=== PATIENT | female | born 1960 | race African-American/Black ===

== ENCOUNTER 2017-11-16 23:24 | Inpatient (IN) | payer MEDICAID ==
[~2017-11-16] VITALS: Ht 167.6 cm; Wt 98.1 kg
[2017-11-17 00:17] LABS: Basophils # (auto) 0 uL; Eosinophils # (auto) 0.2 uL; Eosinophils % (auto) 3.9 % (0.0-7.0); Hemoglobin 10.4 g/dL (12.2-16.2); Lymphocytes # (auto) 2.1 uL; Lymphocytes % (auto) 48.1 % (10.0-50.0); Mean Corpuscular Hemoglobin 29.4 pg (28.0-32.0); Mean Corpuscular Hgb Conc. 33.8 g/dL (32.0-36.0); Monocytes # (auto) 0.5 uL; Monocytes % (auto) 11.9 % (0.0-12.0); Neutrophils # (auto) 1.5 uL; Neutrophils % (auto) 35.1 % (37.0-80.0); Nucleated Red Blood Cells % 0.2 %; Platelet Count (auto) 301 10^3/uL (140-450); Red Blood Cells 3.56 10^6/uL (4.0-5.20); Red Cell Distribution Width 15.4 % (11.8-14.3); White Blood Cell 4.4 10^3/uL (4.4-10.8)
[2017-11-17 00:36] LABS: Albumin 3.1 g/dL (3.4-5.0); Anion Gap 9 (5-15); Aspartate Aminotransferase 8 U/L (15-37); Blood Urea Nitrogen 13 mg/dL (7-18); Calcium 8.6 mg/dL (8.5-10.1); Carbon Dioxide 26 mmol/L (21-32); Chloride 93 mmol/L (98-107); GFR African American 120 mL/min; GFR Non-African American 99 mL/min; Glucose 305 mg/dL (74-106); Magnesium 1.3 mg/dL (1.6-2.6); Potassium 3.5 mmol/L (3.5-5.1); Sodium 128 mmol/L (136-145)
[2017-11-17 00:45] LABS: Alanine Aminotransferase 16 U/L (13-56); Alkaline Phosphatase 49 U/L (45-117); Bilirubin, Total 0.3 mg/dL (0.2-1.0); Total Protein 7.2 g/dL (6.4-8.2)
[2017-11-17] MEDS ORDERED: SODIUM CHLORIDE 0.9% 1,000 ML IV ONE (01:45)
[2017-11-17 02:41] LABS: Urine Bacteria FEW /hpf (None Seen); Urine Blood Negative /uL (Negative); Urine Specific Gravity 1.009 (1.001-1.035); Urine WBC 1 /hpf (0 - 5)
[2017-11-17] MEDS ORDERED: MORPHINE SULFATE 4 MG/ML SYR/VIAL IV ONE (03:00)
[2017-11-17] MEDS ORDERED: LABETALOL HCL 5 MG/ML ML 20ML VIAL IV ONE (03:00)
[2017-11-17] MEDS ORDERED: ONDANSETRON HCL 4 MG/2 ML VIAL IV ONE (03:00)
[2017-11-17] MEDS ORDERED: FUROSEMIDE 20 MG/2 ML VIAL IV ONE (03:00)
[2017-11-17] MEDS ORDERED: InsuLIN REG 1unit/0.01ml Soln (100units/ml) SC ONE ×2 (03:00→12:30)
[2017-11-17] MEDS ORDERED: InsuLIN REG 1unit/0.01ml Soln (100units/ml) IV ONE (05:00)
[2017-11-17] MEDS ORDERED: MORPHINE SULFATE 4 MG/ML SYR/VIAL IV PRN (07:00)
[2017-11-17] MEDS ORDERED: TEMAZEPAM 15 MG CAP PO PRN (07:00)
[2017-11-17] MEDS ORDERED: DEXTROSE (50%) 50ML SYRG IV PRN ×2 (07:00→12:30)
[2017-11-17] MEDS ORDERED: HYDROcodone-ACET 5/325MG TAB PO PRN (07:00)
[2017-11-17] MEDS ORDERED: NITROGLYCERIN 0.4 MG SL TAB SL PRN (07:00)
[2017-11-17] MEDS ORDERED: ONDANSETRON HCL 4 MG/2 ML VIAL IV PRN (07:00)
[2017-11-17] MEDS ORDERED: ACETAMINOPHEN 325 MG TAB PO PRN (07:00)
[2017-11-17] MEDS ORDERED: cloNIDine HCL 0.1 MG TAB PO PRN (07:00)
[2017-11-17] MEDS: SODIUM CHLORIDE 0.9% 1,000 ML IV SCH ×2 (07:29→20:20)
[2017-11-17] MEDS: MAGNESIUM SULFATE 1GM/100ML 100 ML IV SCH ×2 (07:40→08:48)
[2017-11-17] MEDS: ASPirin 81 mg TAB PO SCH (10:24)
[2017-11-17] MEDS: ENOXAPARIN SOD 40 MG/0.4 ML SYRINGE SC SCH (10:24)
[2017-11-17] MEDS: HCTZ 25 MG TAB PO SCH (10:24)
[2017-11-17] MEDS: LOSARTAN POTASSIUM 25 MG TAB PO SCH (10:24)
[2017-11-17] MEDS: FAMOTIDINE 20 MG TAB PO SCH ×2 (10:24→22:06)
[2017-11-17] MEDS ORDERED: HCTZ25T PO (11:05)
[2017-11-17] MEDS ORDERED: BENZ2TAB2 PO (11:05)
[2017-11-17] MEDS ORDERED: GLY5T PO (11:05)
[2017-11-17] MEDS ORDERED: ATO40T PO (11:05)
[2017-11-17] MEDS ORDERED: METF-372 PO (11:05)
[2017-11-17] MEDS ORDERED: HAL5T PO (11:05)
[2017-11-17] MEDS ORDERED: LOSA25TA8 PO (11:05)
[2017-11-17] MEDS ORDERED: LURA40TA PO (11:05)
[2017-11-17] MEDS ORDERED: DIVA500T53 PO (11:05)
[2017-11-17] MEDS ORDERED: InsuLIN REG 1unit/0.01ml Soln (100units/ml) SC SCH (12:00)
[2017-11-17] MEDS ORDERED: ACCU-CHEK COMFORT CURVE STRIP VI SCH (12:00)
[2017-11-17 16:57] VITALS: BP 148/83
[2017-11-17] MEDS: ACCU-CHEK COMFORT CURVE STRIP VI SCH ×2 (17:52→20:00)
[2017-11-17] MEDS: InsuLIN REG 1unit/0.01ml Soln (100units/ml) SC SCH ×2 (17:53→20:00)
[2017-11-17] MEDS: INSULIN 70/30 1unit/0.01ml Susp (100units/ml) SC SCH (18:02)
[2017-11-17 20:00] VITALS: BP 143/55
[2017-11-17 21:40] VITALS: BP 143/70
[2017-11-17] MEDS ORDERED: ATORVASTATIN 20 MG TAB PO SCH (22:00)
[2017-11-18] MEDS: InsuLIN REG 1unit/0.01ml Soln (100units/ml) SC SCH ×3 (04:00→08:21)
[2017-11-18] MEDS: ACCU-CHEK COMFORT CURVE STRIP VI SCH ×3 (04:00→08:21)
[2017-11-18 04:35] VITALS: BP 158/89
[2017-11-18 07:03] LABS: Basophils # (auto) 0 uL; Basophils % (auto) 0.6 % (0.0-2.0); Eosinophils # (auto) 0.1 uL; Eosinophils % (auto) 2.7 % (0.0-7.0); Hematocrit 33.7 % (36.0-46.0); Hemoglobin 11.1 g/dL (12.2-16.2); Lymphocytes # (auto) 2.1 uL; Lymphocytes % (auto) 41.1 % (10.0-50.0); Mean Corpuscular Hemoglobin 28.7 pg (28.0-32.0); Mean Corpuscular Volume 87.1 fL (80.0-100.0); Monocytes # (auto) 0.9 uL; Monocytes % (auto) 17.1 % (0.0-12.0); Neutrophils # (auto) 1.9 uL; Neutrophils % (auto) 38.5 % (37.0-80.0); Nucleated Red Blood Cells % 0.1 %; Platelet Count (auto) 316 10^3/uL (140-450); Red Blood Cells 3.87 10^6/uL (4.0-5.20); Red Cell Distribution Width 15.5 % (11.8-14.3)
[2017-11-18 07:11] LABS: Potassium 4.2 mmol/L (3.5-5.1)
[2017-11-18 07:15] LABS: Albumin 3.2 g/dL (3.4-5.0); BUN/Creatinine Ratio 19.4; Calcium 9.3 mg/dL (8.5-10.1)
[2017-11-18 07:17] LABS: Bilirubin, Total 0.3 mg/dL (0.2-1.0); Total Protein 7.6 g/dL (6.4-8.2)
[2017-11-18] MEDS: INSULIN 70/30 1unit/0.01ml Susp (100units/ml) SC SCH (08:20)
[2017-11-18 09:00] VITALS: BP 129/70
[2017-11-18] MEDS: FAMOTIDINE 20 MG TAB PO SCH (09:35)
[2017-11-18] MEDS: ASPirin 81 mg TAB PO SCH (09:35)
[2017-11-18] MEDS: HCTZ 25 MG TAB PO SCH (09:36)
[2017-11-18] MEDS: ENOXAPARIN SOD 40 MG/0.4 ML SYRINGE SC SCH (09:36)
[2017-11-18] MEDS: LOSARTAN POTASSIUM 25 MG TAB PO SCH (09:36)
[2017-11-18] MEDS: SODIUM CHLORIDE 0.9% 1,000 ML IV SCH (09:39)
[2017-11-18 10:15] VITALS: BP 129/70
== END 2017-11-18 12:00 | disposition home or self-care (01) | DRG 638 ==
LOC: ER 23:24 → TELE 23:25 → TELE-CENTR 11-17 15:00
PROVIDERS: ADMIT Nurse Practitioner; ATTEND Nurse Practitioner
DX: E11.65 Type 2 diabetes mellitus with hyperglycemia (principal); E87.1 Hypo-osmolality and hyponatremia; I11.0 Hypertensive heart disease with heart failure; I50.9 Heart failure, unspecified; E66.01 Morbid (severe) obesity due to excess calories; J98.11 Atelectasis; D64.9 Anemia, unspecified; E78.5 Hyperlipidemia, unspecified; G45.4 Transient global amnesia; Z79.4 Long term (current) use of insulin; Z82.49 Family history of ischemic heart disease and other diseases of the circulatory system; Z83.3 Family history of diabetes mellitus; Z86.73 Personal history of transient ischemic attack (TIA), and cerebral infarction without residual deficits; Z88.0 Allergy status to penicillin
CPT/HCPCS: 36415; 70450; 71045; 80053; 81001; 82962; 83036; 83735; 83880; 84484; 85025; 93005; 93306; 96361; 96365; 96372; 96375; J1815; J2405

== ENCOUNTER 2020-10-31 01:40 | Inpatient (IN) | payer MEDICAID ==
[2020-10-31] VITALS (35 sets, daily range): BP systolic 77–157; BP diastolic 39–83
[~2020-10-31] VITALS: Ht 170.2 cm; Wt 84.7 kg
[~2020-10-31 01:40] MED LIST: ATO40T PO; BENZ2TAB2 PO; DIVA500T2 PO; GLYB5TAB9 PO; HAL5T PO; HYDR25TA5 PO; LOSA25TA2 PO; LURA40TA PO; METF-372 PO
[2020-10-31] MEDS ORDERED: ETOMIDATE (2MG/ML) 20ML VIAL IV ONE ×2 (01:42→02:30)
[2020-10-31] MEDS ORDERED: MIDAZOLAM DRIP 50 mg/50mL 50 ML IV ONE (01:42)
[2020-10-31] MEDS ORDERED: NALOXONE HCL 1MG/ML 2ML SYRINGE ONE (01:46)
[2020-10-31] MEDS: NOREPINEPHRINE 8 MG/250ML KIT 250 ML IV SCH ×3 (01:55→20:13)
[2020-10-31] MEDS ORDERED: FUROSEMIDE 40 MG/4 ML VIAL IV ONE (02:30)
[2020-10-31] MEDS ORDERED: VANCOMYCIN 1GM/250ML 250 ML IV ONE (03:15)
[2020-10-31] MEDS ORDERED: levoFLOXacin 750MG 150 ML IV ONE (03:15)
[2020-10-31 04:24] LABS: Hemoglobin 7.8 g/dL (12.2-16.2); Red Blood Cells 2.68 10^6/uL (4.0-5.20); Red Cell Distribution Width 15.7 % (11.8-14.3)
[2020-10-31 04:26] LABS: Basophils # (auto) 0 10 ^3/uL (0-0.2); Basophils % (auto) 0.2 % (0.0-2.0); Eosinophils # (auto) 0.1 10 ^3/uL (0-0.8); Eosinophils % (auto) 0.7 % (0.0-7.0); Hematocrit 23.4 % (36.0-46.0); Lymphocytes % (auto) 25.8 % (10.0-50.0); Mean Corpuscular Hemoglobin 29.2 pg (28.0-32.0); Mean Corpuscular Hgb Conc. 33.5 g/dL (32.0-36.0); Mean Corpuscular Volume 87.2 fL (80.0-100.0); Monocytes # (auto) 1.8 10 ^3/uL (0-1.3); Monocytes % (auto) 11.4 % (0.0-12.0); Neutrophils # (auto) 9.6 10 ^3/uL (1.6-8.6); Neutrophils % (auto) 61.9 % (37.0-80.0); Nucleated Red Blood Cells % 0.1 %; Platelet Count (auto) 561 10^3/uL (140-450); White Blood Cell 15.4 10^3/uL (4.4-10.8)
[2020-10-31 04:50] LABS: Albumin 1.8 g/dL (3.4-5.0); Calcium 8.2 mg/dL (8.5-10.1); Magnesium 2.1 mg/dL (1.6-2.6)
[2020-10-31 04:55] LABS: Potassium 2.8 mmol/L (3.5-5.1)
[2020-10-31 04:57] LABS: BUN/Creatinine Ratio 23.3; Bilirubin, Total 0.2 mg/dL (0.2-1.0); Total Protein 7.9 g/dL (6.4-8.2)
[2020-10-31 05:02] LABS: INR 1.13 (0.9-1.15); Partial Thromboplastin Time 31.9 sec (23.0-31.2)
[2020-10-31] MEDS ORDERED: POTASSIUM CHL 20MEQ/100ML 100 ML IV STA (06:19)
[2020-10-31] MEDS ORDERED: LACTATED RINGER'S 500 ML IV ONE (06:30)
[2020-10-31] MEDS ORDERED: PROPOFOL 100 ML IV ONE (07:12)
[2020-10-31] MEDS: MIDAZOLAM DRIP 50 mg/50mL 50 ML IV SCH ×3 (07:30→23:15)
[2020-10-31] MEDS: PROPOFOL 100 ML IV SCH ×2 (07:30→22:47)
[2020-10-31 09:03] LABS: Urine Bacteria NONE SEEN /hpf (None Seen); Urine Blood 2+ /uL (Negative); Urine Hyaline Cast FEW /lpf (0 - 2); Urine Specific Gravity 1.016 (1.001-1.035); Urine WBC 7 /hpf (0 - 5)
[2020-10-31] MEDS ORDERED: ONDANSETRON HCL 4 MG/2 ML VIAL IV PRN (10:00)
[2020-10-31] MEDS ORDERED: NITROGLYCERIN 0.4 MG SL TAB SL PRN (10:00)
[2020-10-31] MEDS ORDERED: MORPHINE SULF INJ 2 MG/ML SYRINGE 1ML IV PRN (10:00)
[2020-10-31] MEDS ORDERED: ACETAMINOPHEN 650 mg PER 20.3 mL UD PO PRN (10:00)
[2020-10-31] MEDS ORDERED: D5W/ SOD CHL 0.9%/KCL 20MEQ 1,000 ML IV ONE (10:00)
[2020-10-31] MEDS ORDERED: DEXTROSE (50%) 50ML SYRG IV PRN (10:00)
[2020-10-31 10:25] LABS: Basophils # (auto) 0 10 ^3/uL (0-0.2); Eosinophils # (auto) 0 10 ^3/uL (0-0.8); Hematocrit 22.6 % (36.0-46.0); Hemoglobin 7.6 g/dL (12.2-16.2); Lymphocytes # (auto) 1.4 10 ^3/uL (0.4-5.4); Lymphocytes % (auto) 9.3 % (10.0-50.0); Monocytes # (auto) 1.2 10 ^3/uL (0-1.3); Red Cell Distribution Width 15.9 % (11.8-14.3)
[2020-10-31 10:27] LABS: Basophils % (auto) 0.1 % (0.0-2.0); Mean Corpuscular Hemoglobin 28.9 pg (28.0-32.0); Mean Corpuscular Hgb Conc. 33.5 g/dL (32.0-36.0); Mean Corpuscular Volume 86.4 fL (80.0-100.0); Monocytes % (auto) 8.2 % (0.0-12.0); Neutrophils # (auto) 11.9 10 ^3/uL (1.6-8.6); Neutrophils % (auto) 82.4 % (37.0-80.0); Platelet Count (auto) 551 10^3/uL (140-450); Red Blood Cells 2.61 10^6/uL (4.0-5.20); White Blood Cell 14.5 10^3/uL (4.4-10.8)
[2020-10-31 10:43] LABS: Albumin 1.8 g/dL (3.4-5.0); Calcium 7.9 mg/dL (8.5-10.1); Potassium 3.6 mmol/L (3.5-5.1)
[2020-10-31 10:51] LABS: BUN/Creatinine Ratio 33.3; Bilirubin, Total 0.2 mg/dL (0.2-1.0); Total Protein 7.6 g/dL (6.4-8.2)
[2020-10-31] MEDS: PANTOPRAZOLE 40 MG/10 ML VIAL INJ IV SCH (10:55)
[2020-10-31] MEDS: ACCU-CHEK COMFORT CURVE STRIP VI SCH ×3 (12:27→23:39)
[2020-10-31] MEDS: InsuLIN REG 1unit/0.01ml Soln (100units/ml) SC SCH ×3 (12:27→23:42)
[2020-10-31] MEDS: D5W/ SOD CHL 0.9%/KCL 20MEQ 1,000 ML IV SCH ×2 (13:55→20:14)
[2020-10-31] MEDS: SODIUM CHLOR 0.9% PF (SALINE LOCK) 10ML VIAL/SYR IV SCH ×2 (13:56→21:50)
[2020-10-31] MEDS ORDERED: FURO1TAB31 PO (20:17)
[2020-10-31] MEDS ORDERED: ASPI-543 PO (20:25)
[2020-10-31] MEDS ORDERED: CYA100I IM (20:25)
[2020-10-31] MEDS ORDERED: OLAN20TA PO (20:25)
[2020-10-31] MEDS ORDERED: ZINC220C8 PO (20:25)
[2020-10-31] MEDS ORDERED: INSLISPI SC (20:25)
[2020-10-31] MEDS ORDERED: INSDRIP SC (20:25)
[2020-10-31] MEDS ORDERED: METO-289 PO (20:25)
[2020-10-31] MEDS ORDERED: IBUP800T27 PO (20:25)
[2020-10-31] MEDS ORDERED: TICA90TA PO (20:25)
[2020-10-31] MEDS ORDERED: MAGN400T40 PO (20:25)
[2020-10-31] MEDS ORDERED: INSU1INJ19 SC (20:25)
[2020-10-31] MEDS ORDERED: GABA300C10 PO (20:25)
[2020-10-31] MEDS ORDERED: HAL1T PO (20:26)
[2020-10-31] MEDS ORDERED: CYAN100031 PO (20:27)
[2020-10-31] MEDS ORDERED: ENOXAPARIN SOD 100 MG/1 ML SYRINGE SC SCH (22:00)
[2020-11-01] VITALS (107 sets, daily range): BP systolic 77–143; BP diastolic 35–70
[2020-11-01] MEDS: MIDAZOLAM DRIP 50 mg/50mL 50 ML IV SCH ×3 (03:44→21:13)
[2020-11-01 04:10] LABS: Basophils # (auto) 0 10 ^3/uL (0-0.2); Basophils % (auto) 0.3 % (0.0-2.0); Eosinophils # (auto) 0 10 ^3/uL (0-0.8); Eosinophils % (auto) 0.4 % (0.0-7.0); Lymphocytes # (auto) 1.2 10 ^3/uL (0.4-5.4); Red Blood Cells 2.54 10^6/uL (4.0-5.20)
[2020-11-01 04:12] LABS: Hematocrit 21.8 % (36.0-46.0); Hemoglobin 7.4 g/dL (12.2-16.2); Lymphocytes % (auto) 13.6 % (10.0-50.0); Mean Corpuscular Hemoglobin 29.3 pg (28.0-32.0); Mean Corpuscular Volume 86.1 fL (80.0-100.0); Monocytes # (auto) 0.9 10 ^3/uL (0-1.3); Monocytes % (auto) 10.2 % (0.0-12.0); Neutrophils # (auto) 6.4 10 ^3/uL (1.6-8.6); Neutrophils % (auto) 75.5 % (37.0-80.0); Nucleated Red Blood Cells % 0.1 %; Platelet Count (auto) 490 10^3/uL (140-450); White Blood Cell 8.5 10^3/uL (4.4-10.8)
[2020-11-01 04:20] LABS: INR 1.11 (0.9-1.15); Partial Thromboplastin Time 30.3 sec (23.0-31.2)
[2020-11-01 04:25] LABS: Albumin 1.7 g/dL (3.4-5.0); Calcium 7.8 mg/dL (8.5-10.1); Potassium 3.2 mmol/L (3.5-5.1)
[2020-11-01 04:33] LABS: Bilirubin, Total 0.2 mg/dL (0.2-1.0); Total Protein 7.4 g/dL (6.4-8.2)
[2020-11-01] MEDS: D5W/ SOD CHL 0.9%/KCL 20MEQ 1,000 ML IV SCH (05:12)
[2020-11-01] MEDS: SODIUM CHLOR 0.9% PF (SALINE LOCK) 10ML VIAL/SYR IV SCH ×3 (06:03→22:32)
[2020-11-01] MEDS: ACCU-CHEK COMFORT CURVE STRIP VI SCH ×4 (06:04→23:37)
[2020-11-01] MEDS: InsuLIN REG 1unit/0.01ml Soln (100units/ml) SC SCH ×5 (06:04→23:38)
[2020-11-01] MEDS: PANTOPRAZOLE 40 MG/10 ML VIAL INJ IV SCH (09:44)
[2020-11-01] MEDS: levoFLOXacin 500MG 100 ML IV SCH (09:44)
[2020-11-01 10:06] LABS: Basophils # (auto) 0 10 ^3/uL (0-0.2); Eosinophils # (auto) 0 10 ^3/uL (0-0.8); Hemoglobin 7.3 g/dL (12.2-16.2); Lymphocytes # (auto) 1.1 10 ^3/uL (0.4-5.4); Mean Corpuscular Volume 87.3 fL (80.0-100.0); Monocytes # (auto) 0.8 10 ^3/uL (0-1.3); Monocytes % (auto) 10.2 % (0.0-12.0); Neutrophils # (auto) 5.8 10 ^3/uL (1.6-8.6); Neutrophils % (auto) 75.1 % (37.0-80.0)
[2020-11-01 10:07] LABS: Basophils % (auto) 0.3 % (0.0-2.0); Eosinophils % (auto) 0.2 % (0.0-7.0); Hematocrit 21.3 % (36.0-46.0); Lymphocytes % (auto) 14.2 % (10.0-50.0); Mean Corpuscular Hemoglobin 29.7 pg (28.0-32.0); Mean Corpuscular Hgb Conc. 34.1 g/dL (32.0-36.0); Nucleated Red Blood Cells % 0.1 %; Platelet Count (auto) 470 10^3/uL (140-450); Red Blood Cells 2.44 10^6/uL (4.0-5.20); Red Cell Distribution Width 15.6 % (11.8-14.3); White Blood Cell 7.7 10^3/uL (4.4-10.8)
[2020-11-01 10:26] LABS: Lactic Acid w/Reflex 2.1 mmol/L (0.4-2.0)
[2020-11-01 10:30] LABS: Albumin 1.7 g/dL (3.4-5.0); Calcium 8.1 mg/dL (8.5-10.1); Potassium 3.4 mmol/L (3.5-5.1)
[2020-11-01 10:34] LABS: BUN/Creatinine Ratio 32.3; Bilirubin, Total 0.2 mg/dL (0.2-1.0); Total Protein 7.1 g/dL (6.4-8.2)
[2020-11-01] MEDS ORDERED: SODIUM CHLORIDE 0.9% 1,000 ML IV ONE (17:45)
[2020-11-01] MEDS: NOREPINEPHRINE 8 MG/250ML KIT 250 ML IV SCH (20:00)
[2020-11-02] VITALS (104 sets, daily range): BP systolic 103–152; BP diastolic 44–71
[2020-11-02] MEDS: PROPOFOL 100 ML IV SCH (00:18)
[2020-11-02] MEDS: MIDAZOLAM DRIP 50 mg/50mL 50 ML IV SCH ×3 (02:45→18:17)
[2020-11-02] MEDS: D5W/ SOD CHL 0.9%/KCL 20MEQ 1,000 ML IV SCH ×3 (02:45→16:00)
[2020-11-02 05:26] LABS: Basophils # (auto) 0 10 ^3/uL (0-0.2); Basophils % (auto) 0.2 % (0.0-2.0); Eosinophils # (auto) 0 10 ^3/uL (0-0.8); Neutrophils # (auto) 6.5 10 ^3/uL (1.6-8.6); Red Cell Distribution Width 15.8 % (11.8-14.3); White Blood Cell 9.4 10^3/uL (4.4-10.8)
[2020-11-02 05:29] LABS: Eosinophils % (auto) 0.3 % (0.0-7.0); Hematocrit 20.7 % (36.0-46.0); Lymphocytes # (auto) 1.8 10 ^3/uL (0.4-5.4); Lymphocytes % (auto) 18.9 % (10.0-50.0); Mean Corpuscular Hemoglobin 29.1 pg (28.0-32.0); Mean Corpuscular Hgb Conc. 33.8 g/dL (32.0-36.0); Mean Corpuscular Volume 86.2 fL (80.0-100.0); Monocytes % (auto) 10.9 % (0.0-12.0); Neutrophils % (auto) 69.7 % (37.0-80.0); Platelet Count (auto) 450 10^3/uL (140-450)
[2020-11-02 05:40] LABS: INR 1.12 (0.9-1.15); Partial Thromboplastin Time 29.7 sec (23.0-31.2)
[2020-11-02 05:44] LABS: BUN/Creatinine Ratio 26.4; Calcium 8.1 mg/dL (8.5-10.1); Potassium 4.1 mmol/L (3.5-5.1)
[2020-11-02] MEDS: ACCU-CHEK COMFORT CURVE STRIP VI SCH ×3 (06:21→17:59)
[2020-11-02] MEDS: SODIUM CHLOR 0.9% PF (SALINE LOCK) 10ML VIAL/SYR IV SCH ×3 (06:21→21:57)
[2020-11-02] MEDS: InsuLIN REG 1unit/0.01ml Soln (100units/ml) SC SCH ×3 (06:24→18:01)
[2020-11-02] MEDS: NOREPINEPHRINE 8 MG/250ML KIT 250 ML IV SCH ×2 (07:50→21:10)
[2020-11-02] MEDS: PANTOPRAZOLE 40 MG/10 ML VIAL INJ IV SCH ×2 (10:00→21:57)
[2020-11-02] MEDS: levoFLOXacin 500MG 100 ML IV SCH (10:00)
[2020-11-02] MEDS ORDERED: MIDAZOLAM HCL 5 MG/ML-1ML VIAL ONE (10:45)
[2020-11-02] MEDS ORDERED: fentaNYL CITRATE 100 MCG/2 ML VL ONE (10:46)
[2020-11-02] MEDS ORDERED: SODIUM CHLORIDE LOCK 10 ML ONE (10:47)
[2020-11-02] MEDS ORDERED: GABA400C11 PO ×2 (17:02)
[2020-11-02] MEDS ORDERED: OLAN1TAB19 PO (17:02)
[2020-11-02] MEDS ORDERED: INSU100I4 SC (17:02)
[2020-11-02] MEDS ORDERED: HALO5TAB PO (17:02)
[2020-11-02] MEDS ORDERED: ATOR-47 PO (17:02)
[2020-11-02] MEDS ORDERED: CALC-239 PO (17:18)
[2020-11-02] MEDS ORDERED: [UNRECOGNIZED DRUG - CODE] PO (17:18)
[2020-11-02] MEDS ORDERED: MISCCAP66 PO (17:18)
[2020-11-02] MEDS ORDERED: POTA-180 PO (17:18)
[2020-11-02] MEDS ORDERED: SILV-21 TOP (17:18)
[2020-11-02] MEDS ORDERED: SENN-136 PO (17:18)
[2020-11-02] MEDS ORDERED: FERR325T20 PO (17:18)
[2020-11-02] MEDS ORDERED: ALBU0.084 NEB (17:18)
[2020-11-03] VITALS (58 sets, daily range): BP systolic 124–180; BP diastolic 61–93
[2020-11-03] MEDS: ACCU-CHEK COMFORT CURVE STRIP VI SCH ×4 (00:12→17:06)
[2020-11-03] MEDS: InsuLIN REG 1unit/0.01ml Soln (100units/ml) SC SCH ×4 (00:13→17:06)
[2020-11-03] MEDS: MIDAZOLAM DRIP 50 mg/50mL 50 ML IV SCH (01:00)
[2020-11-03] MEDS: D5W/ SOD CHL 0.9%/KCL 20MEQ 1,000 ML IV SCH ×3 (04:03→22:00)
[2020-11-03 04:36] LABS: Basophils # (auto) 0 10 ^3/uL (0-0.2); Eosinophils # (auto) 0 10 ^3/uL (0-0.8); Mean Corpuscular Hemoglobin 29.9 pg (28.0-32.0); Monocytes % (auto) 10.7 % (0.0-12.0); Neutrophils # (auto) 6.8 10 ^3/uL (1.6-8.6)
[2020-11-03 04:40] LABS: Basophils % (auto) 0.4 % (0.0-2.0); Eosinophils % (auto) 0.3 % (0.0-7.0); Hematocrit 23.4 % (36.0-46.0); Lymphocytes # (auto) 1.6 10 ^3/uL (0.4-5.4); Lymphocytes % (auto) 17.2 % (10.0-50.0); Mean Corpuscular Hgb Conc. 34.3 g/dL (32.0-36.0); Neutrophils % (auto) 71.4 % (37.0-80.0); Platelet Count (auto) 447 10^3/uL (140-450); Red Blood Cells 2.69 10^6/uL (4.0-5.20); Red Cell Distribution Width 15.3 % (11.8-14.3); White Blood Cell 9.5 10^3/uL (4.4-10.8)
[2020-11-03 04:57] LABS: Calcium 8.5 mg/dL (8.5-10.1)
[2020-11-03 04:59] LABS: BUN/Creatinine Ratio 21.8
[2020-11-03] MEDS: SODIUM CHLOR 0.9% PF (SALINE LOCK) 10ML VIAL/SYR IV SCH ×3 (06:05→21:55)
[2020-11-03] MEDS: levoFLOXacin 500MG 100 ML IV SCH (10:23)
[2020-11-03] MEDS: PANTOPRAZOLE 40 MG/10 ML VIAL INJ IV SCH ×2 (10:23→21:55)
[2020-11-03] MEDS ORDERED: IRON SUCROSE COMPLEX 200 MG in SODIUM CHL 0.9% 100 ML IV SCH (12:45)
[2020-11-03] MEDS: SODIUM FERR GLUC 62.5MG/5ML 125 MG in SODIUM CHL 0.9% 100 ML IV SCH (15:09)
[2020-11-03] MEDS ORDERED: EPINEPHrine HCL 0.5 ML NEB NEB ONE (18:45)
[2020-11-03] MEDS ORDERED: FUROSEMIDE 40 MG/4 ML VIAL IV ONE (18:45)
[2020-11-03] MEDS ORDERED: EPINEPHrine HCL 0.5 ML NEB ONE (18:49)
[2020-11-03] MEDS ORDERED: FUROSEMIDE 40 MG/4 ML VIAL ONE (18:49)
[2020-11-04] VITALS (82 sets, daily range): BP systolic 112–197; BP diastolic 17–125
[2020-11-04] MEDS: ACCU-CHEK COMFORT CURVE STRIP VI SCH ×4 (00:43→19:10)
[2020-11-04] MEDS: InsuLIN REG 1unit/0.01ml Soln (100units/ml) SC SCH ×4 (00:51→18:44)
[2020-11-04] MEDS ORDERED: DIGOXIN (250MCG/ML) 2 ML AMPULE ONE (04:49)
[2020-11-04] MEDS ORDERED: dilTIAZem 25 MG/5 ML VIAL IV ONE ×3 (04:56→05:44)
[2020-11-04] MEDS ORDERED: DIGOXIN (250MCG/ML) 2 ML AMPULE IV ONE ×2 (05:00→06:00)
[2020-11-04] MEDS ORDERED: dilTIAZem 125mg/125ml BAG KIT 125 ML IV SCH (05:45)
[2020-11-04] MEDS: SODIUM CHLOR 0.9% PF (SALINE LOCK) 10ML VIAL/SYR IV SCH ×3 (05:53→22:34)
[2020-11-04 06:24] LABS: Hematocrit 26.5 % (36.0-46.0); Hemoglobin 8.9 g/dL (12.2-16.2)
[2020-11-04 06:37] LABS: Potassium 3.5 mmol/L (3.5-5.1)
[2020-11-04] MEDS: D5W/ SOD CHL 0.9%/KCL 20MEQ 1,000 ML IV SCH (06:37)
[2020-11-04 06:45] LABS: BUN/Creatinine Ratio 16.3
[2020-11-04] MEDS: levoFLOXacin 500MG 100 ML IV SCH (10:04)
[2020-11-04] MEDS: PANTOPRAZOLE 40 MG/10 ML VIAL INJ IV SCH ×2 (10:04→22:33)
[2020-11-04] MEDS ORDERED: AMIODARONE HCL 150 MG in D5W 5% 100 ML IV ONE (11:15)
[2020-11-04] MEDS ORDERED: D5W/ SOD CHL 0.9%/KCL 20MEQ 1,000 ML IV SCH (11:30)
[2020-11-04] MEDS ORDERED: AMIODARONE 450mg/250ml AE 250 ML IV SCH (11:30)
[2020-11-04] MEDS ORDERED: ENOXAPARIN SOD 100 MG/1 ML SYRINGE SC ONE (11:45)
[2020-11-04] MEDS: SODIUM FERR GLUC 62.5MG/5ML 125 MG in SODIUM CHL 0.9% 100 ML IV SCH (13:13)
[2020-11-04] MEDS ORDERED: POTASSIUM EFFERVESENT TAB 25 MEQ PO ONE (14:00)
[2020-11-04] MEDS: AMIODARONE 450mg/250ml AE 250 ML IV SCH (18:29)
[2020-11-04] MEDS ORDERED: EPINEPHrine HCL 0.5 ML NEB NEB ONE ×2 (18:30→20:30)
[2020-11-04] MEDS ORDERED: FUROSEMIDE 40 MG/4 ML VIAL IV ONE (20:30)
[2020-11-04] MEDS ORDERED: DexAMETHasone SOD PHOS 4 MG/1ML SDV INJ IV ONE (20:30)
[2020-11-04] MEDS: ALBUTEROL SULF 2.5 MG/0.5ML(0.5%) NEB SOLN NEB PRN (20:52)
[2020-11-04] MEDS: ENOXAPARIN SOD 100 MG/1 ML SYRINGE SC SCH (22:00)
[2020-11-04] MEDS: BUDESONIDE (INHALATION) 0.5 MG/2 ML NEB NEB SCH (22:18)
[2020-11-05] VITALS (80 sets, daily range): BP systolic 120–175; BP diastolic 47–87
[2020-11-05] MEDS: InsuLIN REG 1unit/0.01ml Soln (100units/ml) SC SCH ×4 (00:31→18:03)
[2020-11-05] MEDS: ACCU-CHEK COMFORT CURVE STRIP VI SCH ×4 (00:32→17:32)
[2020-11-05 04:26] LABS: Basophils # (auto) 0 10 ^3/uL (0-0.2); Eosinophils # (auto) 0 10 ^3/uL (0-0.8)
[2020-11-05 04:28] LABS: Basophils % (auto) 0.1 % (0.0-2.0); Hematocrit 26.6 % (36.0-46.0); Hemoglobin 8.9 g/dL (12.2-16.2); Lymphocytes # (auto) 0.9 10 ^3/uL (0.4-5.4); Lymphocytes % (auto) 6.7 % (10.0-50.0); Mean Corpuscular Hemoglobin 29.3 pg (28.0-32.0); Mean Corpuscular Hgb Conc. 33.4 g/dL (32.0-36.0); Mean Corpuscular Volume 87.6 fL (80.0-100.0); Monocytes # (auto) 0.3 10 ^3/uL (0-1.3); Monocytes % (auto) 2.4 % (0.0-12.0); Neutrophils # (auto) 12.2 10 ^3/uL (1.6-8.6); Neutrophils % (auto) 90.8 % (37.0-80.0); Platelet Count (auto) 510 10^3/uL (140-450); Red Blood Cells 3.03 10^6/uL (4.0-5.20); Red Cell Distribution Width 15.1 % (11.8-14.3); White Blood Cell 13.5 10^3/uL (4.4-10.8)
[2020-11-05 04:45] LABS: Calcium 9.3 mg/dL (8.5-10.1); Potassium 3.9 mmol/L (3.5-5.1)
[2020-11-05 04:51] LABS: BUN/Creatinine Ratio 22.1
[2020-11-05 04:54] LABS: INR 1.19 (0.9-1.15); Partial Thromboplastin Time 31.6 sec (23.0-31.2)
[2020-11-05] MEDS: SODIUM CHLOR 0.9% PF (SALINE LOCK) 10ML VIAL/SYR IV SCH ×3 (06:09→22:49)
[2020-11-05] MEDS: PANTOPRAZOLE 40 MG/10 ML VIAL INJ IV SCH ×2 (09:28→22:47)
[2020-11-05] MEDS: ENOXAPARIN SOD 100 MG/1 ML SYRINGE SC SCH ×2 (09:29→22:47)
[2020-11-05] MEDS: levoFLOXacin 500MG 100 ML IV SCH (09:29)
[2020-11-05] MEDS: BUDESONIDE (INHALATION) 0.5 MG/2 ML NEB NEB SCH ×2 (09:46→22:39)
[2020-11-05] MEDS: AMIODARONE 450mg/250ml AE 250 ML IV SCH (09:47)
[2020-11-05] MEDS ORDERED: AMIODARONE HCL 200 MG TAB PO ONE (10:45)
[2020-11-05] MEDS ORDERED: LISINOPRIL 10 MG TAB PO ONE (10:45)
[2020-11-05] MEDS ORDERED: METOPROLOL TARTRATE 25 MG TAB PO ONE (10:45)
[2020-11-05] MEDS: SODIUM FERR GLUC 62.5MG/5ML 125 MG in SODIUM CHL 0.9% 100 ML IV SCH (12:09)
[2020-11-05] MEDS ORDERED: LIDOCAINE 2%HCL (LOCAL ANESTH.) INJ 20ML MDV ONE (13:06)
[2020-11-05] MEDS ORDERED: HEPARIN SODIUM (PORCINE) 5000 UNITS/ML 1ML VIAL ONE (13:14)
[2020-11-05] MEDS ORDERED: VERAPAMIL 2.5MG/ML INJ 2ML VIAL IV ONE (13:14)
[2020-11-05] MEDS ORDERED: fentaNYL CITRATE 100 MCG/2 ML VL ONE (13:14)
[2020-11-05] MEDS ORDERED: ANGIOMAX 250 MG VIAL IV ONE (13:14)
[2020-11-05] MEDS ORDERED: MIDAZOLAM HCL 1MG/1ML-2 ML VIAL ONE (13:15)
[2020-11-05] MEDS ORDERED: SODIUM CHL 0.9% 50 ML ONE (13:15)
[2020-11-05] MEDS ORDERED: IODIXANOL 320MG/ML 100ML BTL IV ONE (13:17)
[2020-11-05] MEDS ORDERED: diphenhdrAMINE HCL 50 MG/1 ML VL ONE (13:52)
[2020-11-05] MEDS ORDERED: CLOPIDOGREL 300 MG TAB ONE (14:07)
[2020-11-05] MEDS ORDERED: ASPirin 325 MG TAB ONE (14:07)
[2020-11-05] MEDS: INSULIN LANTUS (GLARGINE) 1 /0.01ml (100units/ml) SC SCH (19:00)
[2020-11-05 19:46] LABS: Basophils # (auto) 0 10 ^3/uL (0-0.2); Eosinophils # (auto) 0.1 10 ^3/uL (0-0.8); Eosinophils % (auto) 1.2 % (0.0-7.0); Lymphocytes # (auto) 1.9 10 ^3/uL (0.4-5.4); Nucleated Red Blood Cells % 0.1 %
[2020-11-05 19:48] LABS: Basophils % (auto) 0.3 % (0.0-2.0); Hematocrit 23.2 % (36.0-46.0); Hemoglobin 7.7 g/dL (12.2-16.2); Lymphocytes % (auto) 19.7 % (10.0-50.0); Mean Corpuscular Hemoglobin 29.3 pg (28.0-32.0); Mean Corpuscular Hgb Conc. 33.2 g/dL (32.0-36.0); Mean Corpuscular Volume 88.4 fL (80.0-100.0); Monocytes % (auto) 10.1 % (0.0-12.0); Neutrophils # (auto) 6.5 10 ^3/uL (1.6-8.6); Neutrophils % (auto) 68.7 % (37.0-80.0); Platelet Count (auto) 463 10^3/uL (140-450); Red Blood Cells 2.63 10^6/uL (4.0-5.20); White Blood Cell 9.5 10^3/uL (4.4-10.8)
[2020-11-05] MEDS: ALBUTEROL SULF 2.5 MG/0.5ML(0.5%) NEB SOLN NEB PRN (22:39)
[2020-11-05] MEDS: HALOPERIDOL 5 MG TAB PO SCH (22:48)
[2020-11-05] MEDS: AMIODARONE HCL 200 MG TAB PO SCH (22:48)
[2020-11-05] MEDS: METOPROLOL TARTRATE 25 MG TAB PO SCH (22:49)
[2020-11-06] VITALS (31 sets, daily range): BP systolic 119–192; BP diastolic 47–99
[2020-11-06] MEDS: InsuLIN REG 1unit/0.01ml Soln (100units/ml) SC SCH ×5 (00:17→23:37)
[2020-11-06] MEDS: ACCU-CHEK COMFORT CURVE STRIP VI SCH ×5 (00:20→23:37)
[2020-11-06 04:36] LABS: Eosinophils # (auto) 0.2 10 ^3/uL (0-0.8); Hematocrit 23.6 % (36.0-46.0); Mean Corpuscular Hemoglobin 29.9 pg (28.0-32.0); Platelet Count (auto) 487 10^3/uL (140-450)
[2020-11-06 04:39] LABS: Basophils # (auto) 0 10 ^3/uL (0-0.2); Basophils % (auto) 0.4 % (0.0-2.0); Hemoglobin 8.1 g/dL (12.2-16.2); Lymphocytes # (auto) 2.6 10 ^3/uL (0.4-5.4); Lymphocytes % (auto) 27.3 % (10.0-50.0); Mean Corpuscular Hgb Conc. 34.1 g/dL (32.0-36.0); Mean Corpuscular Volume 87.8 fL (80.0-100.0); Monocytes # (auto) 0.9 10 ^3/uL (0-1.3); Monocytes % (auto) 9.9 % (0.0-12.0); Neutrophils # (auto) 5.7 10 ^3/uL (1.6-8.6); Neutrophils % (auto) 60.4 % (37.0-80.0); Red Blood Cells 2.69 10^6/uL (4.0-5.20); Red Cell Distribution Width 14.9 % (11.8-14.3); White Blood Cell 9.4 10^3/uL (4.4-10.8)
[2020-11-06 04:55] LABS: Potassium 3.7 mmol/L (3.5-5.1)
[2020-11-06 05:02] LABS: BUN/Creatinine Ratio 34.1; Calcium 8.7 mg/dL (8.5-10.1)
[2020-11-06] MEDS: SODIUM CHLOR 0.9% PF (SALINE LOCK) 10ML VIAL/SYR IV SCH ×3 (05:46→22:00)
[2020-11-06] MEDS: ENOXAPARIN SOD 100 MG/1 ML SYRINGE SC SCH ×2 (10:00→22:00)
[2020-11-06] MEDS: BUDESONIDE (INHALATION) 0.5 MG/2 ML NEB NEB SCH ×2 (10:02→22:00)
[2020-11-06] MEDS: PANTOPRAZOLE 40 MG/10 ML VIAL INJ IV SCH ×2 (10:03→22:00)
[2020-11-06] MEDS: ASPirin-EC 81 mg tab PO SCH (10:03)
[2020-11-06] MEDS: levoFLOXacin 500MG 100 ML IV SCH (10:03)
[2020-11-06] MEDS: LISINOPRIL 10 MG TAB PO SCH (10:04)
[2020-11-06] MEDS: AMIODARONE HCL 200 MG TAB PO SCH ×2 (10:04→22:00)
[2020-11-06] MEDS: CLOPIDOGREL BISULFATE 75 MG TAB PO SCH (10:04)
[2020-11-06] MEDS: OLANZapine 5 MG TAB PO SCH (10:05)
[2020-11-06] MEDS: METOPROLOL TARTRATE 25 MG TAB PO SCH ×2 (10:05→22:00)
[2020-11-06] MEDS: INSULIN LANTUS (GLARGINE) 1 /0.01ml (100units/ml) SC SCH (10:09)
[2020-11-06] MEDS: HALOPERIDOL 5 MG TAB PO SCH ×2 (10:15→22:00)
[2020-11-06] MEDS: SODIUM FERR GLUC 62.5MG/5ML 125 MG in SODIUM CHL 0.9% 100 ML IV SCH (12:03)
[2020-11-07] VITALS (8 sets, daily range): BP systolic 127–169; BP diastolic 52–87
[2020-11-07] MEDS: SODIUM CHLOR 0.9% PF (SALINE LOCK) 10ML VIAL/SYR IV SCH ×3 (06:19→22:23)
[2020-11-07] MEDS: ACCU-CHEK COMFORT CURVE STRIP VI SCH ×3 (06:19→17:57)
[2020-11-07] MEDS: InsuLIN REG 1unit/0.01ml Soln (100units/ml) SC SCH ×3 (06:24→17:59)
[2020-11-07 06:52] LABS: Basophils # (auto) 0.1 10 ^3/uL (0-0.2); Basophils % (auto) 0.6 % (0.0-2.0); Eosinophils # (auto) 0.3 10 ^3/uL (0-0.8); Lymphocytes # (auto) 1.8 10 ^3/uL (0.4-5.4); Monocytes # (auto) 0.8 10 ^3/uL (0-1.3); Nucleated Red Blood Cells % 0.1 %
[2020-11-07 06:55] LABS: Eosinophils % (auto) 3.5 % (0.0-7.0); Hematocrit 26.7 % (36.0-46.0); Hemoglobin 9.1 g/dL (12.2-16.2); Mean Corpuscular Hemoglobin 29.7 pg (28.0-32.0); Mean Corpuscular Volume 87.2 fL (80.0-100.0); Monocytes % (auto) 8.4 % (0.0-12.0); Neutrophils # (auto) 6.5 10 ^3/uL (1.6-8.6); Neutrophils % (auto) 68.5 % (37.0-80.0); Platelet Count (auto) 513 10^3/uL (140-450); Red Blood Cells 3.06 10^6/uL (4.0-5.20); Red Cell Distribution Width 15.3 % (11.8-14.3); White Blood Cell 9.5 10^3/uL (4.4-10.8)
[2020-11-07 07:02] LABS: Calcium 8.9 mg/dL (8.5-10.1); Potassium 3.9 mmol/L (3.5-5.1)
[2020-11-07 07:04] LABS: BUN/Creatinine Ratio 29.3
[2020-11-07] MEDS: PANTOPRAZOLE 40 MG/10 ML VIAL INJ IV SCH ×2 (10:35→22:23)
[2020-11-07] MEDS: OLANZapine 5 MG TAB PO SCH (10:36)
[2020-11-07] MEDS: LISINOPRIL 10 MG TAB PO SCH (10:37)
[2020-11-07] MEDS: CLOPIDOGREL BISULFATE 75 MG TAB PO SCH (10:37)
[2020-11-07] MEDS: METOPROLOL TARTRATE 25 MG TAB PO SCH ×2 (10:38→22:22)
[2020-11-07] MEDS: HALOPERIDOL 5 MG TAB PO SCH ×2 (10:42→22:22)
[2020-11-07] MEDS: AMIODARONE HCL 200 MG TAB PO SCH ×2 (10:42→22:23)
[2020-11-07] MEDS: ASPirin-EC 81 mg tab PO SCH (10:43)
[2020-11-07] MEDS: levoFLOXacin 500MG 100 ML IV SCH (10:44)
[2020-11-07] MEDS: ENOXAPARIN SOD 100 MG/1 ML SYRINGE SC SCH ×3 (10:44→22:22)
[2020-11-07] MEDS: BUDESONIDE (INHALATION) 0.5 MG/2 ML NEB NEB SCH ×2 (10:49→18:49)
[2020-11-07] MEDS: INSULIN LANTUS (GLARGINE) 1 /0.01ml (100units/ml) SC SCH (11:36)
[2020-11-07] MEDS: SODIUM FERR GLUC 62.5MG/5ML 125 MG in SODIUM CHL 0.9% 100 ML IV SCH (12:43)
[2020-11-07] MEDS ORDERED: LORazepam 2MG/ML-1ML VIAL IV PRN (21:45)
[2020-11-08] MEDS: ACCU-CHEK COMFORT CURVE STRIP VI SCH ×5 (00:02→23:48)
[2020-11-08] MEDS: InsuLIN REG 1unit/0.01ml Soln (100units/ml) SC SCH ×5 (00:05→23:48)
[2020-11-08 05:00] VITALS: BP 159/69
[2020-11-08] MEDS: SODIUM CHLOR 0.9% PF (SALINE LOCK) 10ML VIAL/SYR IV SCH ×3 (06:01→21:53)
[2020-11-08] MEDS: ALBUTEROL SULF 2.5 MG/0.5ML(0.5%) NEB SOLN NEB PRN (07:11)
[2020-11-08] MEDS: BUDESONIDE (INHALATION) 0.5 MG/2 ML NEB NEB SCH ×2 (07:11→19:13)
[2020-11-08 07:38] LABS: Eosinophils # (auto) 0.3 10 ^3/uL (0-0.8); Hematocrit 25.3 % (36.0-46.0); Hemoglobin 8.6 g/dL (12.2-16.2); Lymphocytes # (auto) 1.9 10 ^3/uL (0.4-5.4); Monocytes # (auto) 0.9 10 ^3/uL (0-1.3); Nucleated Red Blood Cells % 0.1 %; Red Blood Cells 2.91 10^6/uL (4.0-5.20)
[2020-11-08 07:40] LABS: Basophils # (auto) 0.1 10 ^3/uL (0-0.2); Basophils % (auto) 0.6 % (0.0-2.0); Eosinophils % (auto) 3.3 % (0.0-7.0); Lymphocytes % (auto) 22.2 % (10.0-50.0); Mean Corpuscular Hemoglobin 29.6 pg (28.0-32.0); Monocytes % (auto) 10.7 % (0.0-12.0); Neutrophils # (auto) 5.4 10 ^3/uL (1.6-8.6); Neutrophils % (auto) 63.2 % (37.0-80.0); Platelet Count (auto) 484 10^3/uL (140-450); White Blood Cell 8.6 10^3/uL (4.4-10.8)
[2020-11-08 07:56] LABS: Calcium 8.8 mg/dL (8.5-10.1); Potassium 3.7 mmol/L (3.5-5.1)
[2020-11-08 07:58] LABS: BUN/Creatinine Ratio 25.8
[2020-11-08 08:01] LABS: INR 1.1 (0.9-1.15)
[2020-11-08] MEDS: OLANZapine 5 MG TAB PO SCH (08:20)
[2020-11-08] MEDS: ASPirin-EC 81 mg tab PO SCH (08:20)
[2020-11-08] MEDS: AMIODARONE HCL 200 MG TAB PO SCH ×2 (08:21→21:54)
[2020-11-08] MEDS: METOPROLOL TARTRATE 25 MG TAB PO SCH ×2 (08:21→21:55)
[2020-11-08] MEDS: CLOPIDOGREL BISULFATE 75 MG TAB PO SCH (08:21)
[2020-11-08] MEDS: LISINOPRIL 10 MG TAB PO SCH (08:21)
[2020-11-08] MEDS: PANTOPRAZOLE 40 MG/10 ML VIAL INJ IV SCH ×2 (08:22→21:53)
[2020-11-08] MEDS: ENOXAPARIN SOD 100 MG/1 ML SYRINGE SC SCH ×2 (08:23→21:55)
[2020-11-08 09:00] VITALS: BP 133/81
[2020-11-08] MEDS ORDERED: POTASSIUM EFFERVESENT TAB 25 MEQ GT ONE (09:30)
[2020-11-08] MEDS: levoFLOXacin 500MG 100 ML IV SCH (10:00)
[2020-11-08] MEDS: HALOPERIDOL 5 MG TAB PO SCH ×2 (10:00→22:08)
[2020-11-08] MEDS: INSULIN LANTUS (GLARGINE) 1 /0.01ml (100units/ml) SC SCH (10:00)
[2020-11-08] MEDS: DIGOXIN 0.125 MG TAB PO SCH (11:01)
[2020-11-08] MEDS ORDERED: LORazepam 2MG/ML-1ML VIAL IV ONE (11:15)
[2020-11-08 13:00] VITALS: BP 132/97
[2020-11-08 17:00] VITALS: BP 147/65
[2020-11-08 22:00] VITALS: BP 158/69
[2020-11-09] VITALS (7 sets, daily range): BP systolic 132–163; BP diastolic 48–74
[2020-11-09] MEDS: ACCU-CHEK COMFORT CURVE STRIP VI SCH ×3 (05:36→17:47)
[2020-11-09] MEDS: SODIUM CHLOR 0.9% PF (SALINE LOCK) 10ML VIAL/SYR IV SCH ×3 (05:36→22:29)
[2020-11-09] MEDS: InsuLIN REG 1unit/0.01ml Soln (100units/ml) SC SCH ×3 (05:36→17:59)
[2020-11-09] MEDS: ALBUTEROL SULF 2.5 MG/0.5ML(0.5%) NEB SOLN NEB PRN ×2 (06:32→18:30)
[2020-11-09] MEDS: BUDESONIDE (INHALATION) 0.5 MG/2 ML NEB NEB SCH ×2 (06:32→18:30)
[2020-11-09] MEDS: CLOPIDOGREL BISULFATE 75 MG TAB PO SCH (08:09)
[2020-11-09] MEDS: levoFLOXacin 500MG 100 ML IV SCH (08:09)
[2020-11-09] MEDS: OLANZapine 5 MG TAB PO SCH (08:09)
[2020-11-09] MEDS: DIGOXIN 0.125 MG TAB PO SCH (08:09)
[2020-11-09] MEDS: ASPirin-EC 81 mg tab PO SCH (08:10)
[2020-11-09] MEDS: AMIODARONE HCL 200 MG TAB PO SCH ×2 (08:10→22:22)
[2020-11-09] MEDS: LISINOPRIL 10 MG TAB PO SCH (08:10)
[2020-11-09] MEDS: METOPROLOL TARTRATE 25 MG TAB PO SCH ×2 (08:10→22:23)
[2020-11-09] MEDS: ENOXAPARIN SOD 100 MG/1 ML SYRINGE SC SCH ×2 (08:11→22:23)
[2020-11-09] MEDS: PANTOPRAZOLE 40 MG/10 ML VIAL INJ IV SCH ×2 (08:11→22:29)
[2020-11-09] MEDS: HALOPERIDOL 5 MG TAB PO SCH ×2 (09:32→22:23)
[2020-11-09] MEDS: INSULIN LANTUS (GLARGINE) 1 /0.01ml (100units/ml) SC SCH (10:00)
[2020-11-10] MEDS: ACCU-CHEK COMFORT CURVE STRIP VI SCH ×4 (00:05→18:00)
[2020-11-10] MEDS: InsuLIN REG 1unit/0.01ml Soln (100units/ml) SC SCH ×4 (00:08→18:02)
[2020-11-10 05:00] VITALS: BP 161/72
[2020-11-10] MEDS: SODIUM CHLOR 0.9% PF (SALINE LOCK) 10ML VIAL/SYR IV SCH ×3 (06:13→22:12)
[2020-11-10 08:30] VITALS: BP 115/59
[2020-11-10] MEDS ORDERED: CLINDAMYCIN 600MG IV 50 ML IV ONE ×2 (09:05→09:58)
[2020-11-10] MEDS ORDERED: MIDAZOLAM HCL 1MG/1ML-2 ML VIAL ONE (09:20)
[2020-11-10] MEDS ORDERED: SODIUM CHLORIDE LOCK 10 ML ONE (09:20)
[2020-11-10] MEDS ORDERED: PROPOFOL 10 MG/ML 20 ML IV ONE (09:20)
[2020-11-10] MEDS ORDERED: fentaNYL CITRATE 100 MCG/2 ML VL ONE (09:20)
[2020-11-10] MEDS ORDERED: ONDANSETRON HCL 4 MG/2 ML VIAL ONE (09:20)
[2020-11-10] MEDS ORDERED: HYDROmorphone HCL 2 MG/ML VL IV PRN (09:45)
[2020-11-10] MEDS ORDERED: MORPHINE SULFATE 4 MG/ML SYR/VIAL IV PRN (09:45)
[2020-11-10] MEDS ORDERED: ACCU-CHEK COMFORT CURVE STRIP VI ONE (09:45)
[2020-11-10] MEDS ORDERED: ONDANSETRON HCL 4 MG/2 ML VIAL IV PRN (09:45)
[2020-11-10] MEDS ORDERED: ROPIVACAINE 0.5% (5MG/ML) 20ML AMPULE IJ ONE (09:57)
[2020-11-10] MEDS: INSULIN LANTUS (GLARGINE) 1 /0.01ml (100units/ml) SC SCH ×2 (10:00→12:52)
[2020-11-10] MEDS: ENOXAPARIN SOD 100 MG/1 ML SYRINGE SC SCH (10:00)
[2020-11-10] MEDS: METOPROLOL TARTRATE 25 MG TAB PO SCH ×2 (10:00→22:14)
[2020-11-10] MEDS: LISINOPRIL 10 MG TAB PO SCH (10:00)
[2020-11-10] MEDS ORDERED: KETAMINE HCL 10 ML ONE (10:32)
[2020-11-10] MEDS: BUDESONIDE (INHALATION) 0.5 MG/2 ML NEB NEB SCH ×2 (10:45→19:18)
[2020-11-10] MEDS: levoFLOXacin 500MG 100 ML IV SCH (12:22)
[2020-11-10] MEDS: PANTOPRAZOLE 40 MG/10 ML VIAL INJ IV SCH ×2 (12:22→22:12)
[2020-11-10] MEDS: AMIODARONE HCL 200 MG TAB PO SCH ×2 (12:30→22:13)
[2020-11-10 12:31] VITALS: BP 105/61
[2020-11-10] MEDS: OLANZapine 5 MG TAB PO SCH (12:31)
[2020-11-10] MEDS: DIGOXIN 0.125 MG TAB PO SCH (12:31)
[2020-11-10] MEDS: ASPirin-EC 81 mg tab PO SCH (12:31)
[2020-11-10] MEDS: CLOPIDOGREL BISULFATE 75 MG TAB PO SCH (12:31)
[2020-11-10] MEDS: HALOPERIDOL 5 MG TAB PO SCH ×2 (12:52→22:13)
[2020-11-10] MEDS ORDERED: cefTRIAXone 1GM/50ML D5W 50 ML IV ONE (14:15)
[2020-11-10] MEDS ORDERED: VANCOMYCIN 1GM/250ML 250 ML IV ONE (14:15)
[2020-11-10] MEDS ORDERED: VANCOMYCIN PER PHARMACY 0 MG IV SCH (14:15)
[2020-11-10 14:21] LABS: Basophils # (auto) 0 10 ^3/uL (0-0.2); Basophils % (auto) 0.4 % (0.0-2.0); Eosinophils # (auto) 0.1 10 ^3/uL (0-0.8); Eosinophils % (auto) 1.7 % (0.0-7.0); Hemoglobin 9.9 g/dL (12.2-16.2); Lymphocytes % (auto) 16.7 % (10.0-50.0); Mean Corpuscular Hemoglobin 29.6 pg (28.0-32.0); Mean Corpuscular Volume 89.6 fL (80.0-100.0); Monocytes # (auto) 0.6 10 ^3/uL (0-1.3); Monocytes % (auto) 9.2 % (0.0-12.0); Neutrophils # (auto) 4.4 10 ^3/uL (1.6-8.6); Platelet Count (auto) 446 10^3/uL (140-450); Red Blood Cells 3.35 10^6/uL (4.0-5.20); Red Cell Distribution Width 15.2 % (11.8-14.3); White Blood Cell 6.1 10^3/uL (4.4-10.8)
[2020-11-10 14:34] LABS: BUN/Creatinine Ratio 21.8; Calcium 8.7 mg/dL (8.5-10.1); Potassium 4.1 mmol/L (3.5-5.1)
[2020-11-10 17:05] VITALS: BP 104/34
[2020-11-10] MEDS: ALBUTEROL SULF 2.5 MG/0.5ML(0.5%) NEB SOLN NEB PRN (19:23)
[2020-11-10 20:00] VITALS: BP 112/51
[2020-11-10 22:00] VITALS: BP 112/51
[2020-11-10] MEDS: MEROPENEM 1GM IVPB 100 ML IV SCH (22:12)
[2020-11-11] MEDS: ACCU-CHEK COMFORT CURVE STRIP VI SCH ×4 (00:10→18:59)
[2020-11-11] MEDS: InsuLIN REG 1unit/0.01ml Soln (100units/ml) SC SCH ×4 (00:12→19:01)
[2020-11-11] MEDS: VANCOMYCIN 1GM/250ML 250 ML IV SCH ×2 (01:56→13:54)
[2020-11-11 04:52] VITALS: BP 146/52
[2020-11-11 05:57] LABS: Basophils # (auto) 0 10 ^3/uL (0-0.2); Basophils % (auto) 0.4 % (0.0-2.0); Eosinophils # (auto) 0.1 10 ^3/uL (0-0.8); Eosinophils % (auto) 1.5 % (0.0-7.0); Hematocrit 26.3 % (36.0-46.0); Hemoglobin 8.9 g/dL (12.2-16.2); Lymphocytes # (auto) 0.8 10 ^3/uL (0.4-5.4); Lymphocytes % (auto) 10.9 % (10.0-50.0); Mean Corpuscular Hemoglobin 30.2 pg (28.0-32.0); Mean Corpuscular Hgb Conc. 33.7 g/dL (32.0-36.0); Mean Corpuscular Volume 89.5 fL (80.0-100.0); Monocytes # (auto) 0.7 10 ^3/uL (0-1.3); Monocytes % (auto) 9.2 % (0.0-12.0); Neutrophils # (auto) 5.9 10 ^3/uL (1.6-8.6); Platelet Count (auto) 422 10^3/uL (140-450); Red Blood Cells 2.94 10^6/uL (4.0-5.20); Red Cell Distribution Width 15.2 % (11.8-14.3); White Blood Cell 7.5 10^3/uL (4.4-10.8)
[2020-11-11] MEDS: MEROPENEM 1GM IVPB 100 ML IV SCH ×3 (06:08→23:08)
[2020-11-11] MEDS: SODIUM CHLOR 0.9% PF (SALINE LOCK) 10ML VIAL/SYR IV SCH ×3 (06:13→23:09)
[2020-11-11 06:19] LABS: Potassium 3.9 mmol/L (3.5-5.1)
[2020-11-11 06:25] LABS: BUN/Creatinine Ratio 17.1; Calcium 8.2 mg/dL (8.5-10.1)
[2020-11-11] MEDS: BUDESONIDE (INHALATION) 0.5 MG/2 ML NEB NEB SCH ×2 (06:32→22:49)
[2020-11-11] MEDS: ALBUTEROL SULF 2.5 MG/0.5ML(0.5%) NEB SOLN NEB PRN ×2 (06:32→22:50)
[2020-11-11 08:17] VITALS: BP 152/57
[2020-11-11] MEDS ORDERED: levoFLOXacin 500 MG TAB PO SCH (10:00)
[2020-11-11] MEDS: INSULIN LANTUS (GLARGINE) 1 /0.01ml (100units/ml) SC SCH ×2 (12:11→23:13)
[2020-11-11] MEDS: OLANZapine 5 MG TAB PO SCH (12:17)
[2020-11-11] MEDS: ASPirin-EC 81 mg tab PO SCH (12:17)
[2020-11-11] MEDS: HALOPERIDOL 5 MG TAB PO SCH ×2 (12:17→23:10)
[2020-11-11] MEDS: DIGOXIN 0.125 MG TAB PO SCH (12:19)
[2020-11-11] MEDS: LISINOPRIL 10 MG TAB PO SCH (12:19)
[2020-11-11] MEDS: METOPROLOL TARTRATE 25 MG TAB PO SCH ×2 (12:20→23:10)
[2020-11-11] MEDS: APIXABAN 5 MG TAB PO SCH ×2 (12:20→23:09)
[2020-11-11] MEDS: AMIODARONE HCL 200 MG TAB PO SCH ×2 (12:20→23:09)
[2020-11-11] MEDS: PANTOPRAZOLE 40 MG/10 ML VIAL INJ IV SCH ×2 (12:21→23:08)
[2020-11-11 13:00] VITALS: BP 151/66
[2020-11-11] MEDS: HYDROcodone-ACET 5/325MG TAB PO PRN (15:09)
[2020-11-11 16:54] VITALS: BP 143/60
[2020-11-12] VITALS (7 sets, daily range): BP systolic 127–157; BP diastolic 49–71
[2020-11-12] MEDS: ACCU-CHEK COMFORT CURVE STRIP VI SCH ×5 (00:23→23:44)
[2020-11-12] MEDS: InsuLIN REG 1unit/0.01ml Soln (100units/ml) SC SCH ×5 (00:27→23:44)
[2020-11-12] MEDS: VANCOMYCIN 1GM/250ML 250 ML IV SCH ×2 (03:39→14:11)
[2020-11-12] MEDS: SODIUM CHLOR 0.9% PF (SALINE LOCK) 10ML VIAL/SYR IV SCH ×4 (06:34→23:20)
[2020-11-12] MEDS: MEROPENEM 1GM IVPB 100 ML IV SCH ×3 (06:34→23:20)
[2020-11-12 06:48] LABS: Basophils # (auto) 0 10 ^3/uL (0-0.2); Basophils % (auto) 0.3 % (0.0-2.0); Eosinophils # (auto) 0.1 10 ^3/uL (0-0.8); Eosinophils % (auto) 1.5 % (0.0-7.0); Hemoglobin 8.4 g/dL (12.2-16.2); Lymphocytes # (auto) 1.3 10 ^3/uL (0.4-5.4)
[2020-11-12 06:50] LABS: Hematocrit 24.4 % (36.0-46.0); Lymphocytes % (auto) 14.3 % (10.0-50.0); Mean Corpuscular Hgb Conc. 34.5 g/dL (32.0-36.0); Mean Corpuscular Volume 87.1 fL (80.0-100.0); Monocytes % (auto) 10.9 % (0.0-12.0); Neutrophils # (auto) 6.7 10 ^3/uL (1.6-8.6); Platelet Count (auto) 412 10^3/uL (140-450); Red Cell Distribution Width 15.3 % (11.8-14.3); White Blood Cell 9.1 10^3/uL (4.4-10.8)
[2020-11-12 07:07] LABS: BUN/Creatinine Ratio 18.4; Calcium 8.7 mg/dL (8.5-10.1); Potassium 3.9 mmol/L (3.5-5.1)
[2020-11-12] MEDS: HYDROcodone-ACET 5/325MG TAB PO PRN (09:15)
[2020-11-12] MEDS: BUDESONIDE (INHALATION) 0.5 MG/2 ML NEB NEB SCH ×2 (09:59→22:16)
[2020-11-12] MEDS: INSULIN LANTUS (GLARGINE) 1 /0.01ml (100units/ml) SC SCH ×2 (10:00→23:43)
[2020-11-12] MEDS: APIXABAN 5 MG TAB PO SCH ×2 (10:00→23:24)
[2020-11-12] MEDS: ASPirin-EC 81 mg tab PO SCH (10:29)
[2020-11-12] MEDS: LISINOPRIL 10 MG TAB PO SCH (10:30)
[2020-11-12] MEDS: DIGOXIN 0.125 MG TAB PO SCH (10:30)
[2020-11-12] MEDS: METOPROLOL TARTRATE 25 MG TAB PO SCH ×2 (10:30→23:24)
[2020-11-12] MEDS: OLANZapine 5 MG TAB PO SCH (10:30)
[2020-11-12] MEDS: AMIODARONE HCL 200 MG TAB PO SCH ×2 (10:31→23:24)
[2020-11-12] MEDS: HALOPERIDOL 5 MG TAB PO SCH ×2 (10:31→23:24)
[2020-11-12] MEDS: PANTOPRAZOLE 40 MG/10 ML VIAL INJ IV SCH ×2 (10:31→23:23)
[2020-11-12 11:56] LABS: INR 1.07 (0.9-1.15); Partial Thromboplastin Time 30.4 sec (23.0-31.2)
[2020-11-12] MEDS: ALBUTEROL SULF 2.5 MG/0.5ML(0.5%) NEB SOLN NEB PRN (22:16)
[2020-11-13] MEDS: VANCOMYCIN 1GM/250ML 250 ML IV SCH ×2 (02:25→14:26)
[2020-11-13 05:00] VITALS: BP 173/82
[2020-11-13] MEDS: hydrALAZINE HCL 20 MG/ML VL IV PRN (05:02)
[2020-11-13] MEDS: MEROPENEM 1GM IVPB 100 ML IV SCH ×3 (05:23→22:23)
[2020-11-13] MEDS: ACCU-CHEK COMFORT CURVE STRIP VI SCH ×3 (05:24→17:51)
[2020-11-13] MEDS: SODIUM CHLOR 0.9% PF (SALINE LOCK) 10ML VIAL/SYR IV SCH ×5 (05:24→22:24)
[2020-11-13] MEDS: InsuLIN REG 1unit/0.01ml Soln (100units/ml) SC SCH ×3 (05:24→17:56)
[2020-11-13 06:32] VITALS: BP 163/60
[2020-11-13] MEDS: ALBUTEROL SULF 2.5 MG/0.5ML(0.5%) NEB SOLN NEB PRN ×2 (06:56→22:25)
[2020-11-13] MEDS: BUDESONIDE (INHALATION) 0.5 MG/2 ML NEB NEB SCH ×2 (06:56→22:25)
[2020-11-13 08:50] LABS: Basophils # (auto) 0.1 10 ^3/uL (0-0.2); Basophils % (auto) 0.6 % (0.0-2.0); Eosinophils # (auto) 0.1 10 ^3/uL (0-0.8); Eosinophils % (auto) 0.9 % (0.0-7.0); Hematocrit 26.5 % (36.0-46.0); Hemoglobin 8.9 g/dL (12.2-16.2); Lymphocytes # (auto) 1.4 10 ^3/uL (0.4-5.4); Lymphocytes % (auto) 13.1 % (10.0-50.0); Mean Corpuscular Hemoglobin 29.4 pg (28.0-32.0); Mean Corpuscular Hgb Conc. 33.6 g/dL (32.0-36.0); Mean Corpuscular Volume 87.6 fL (80.0-100.0); Monocytes % (auto) 9.2 % (0.0-12.0); Neutrophils # (auto) 8.4 10 ^3/uL (1.6-8.6); Neutrophils % (auto) 76.2 % (37.0-80.0); Nucleated Red Blood Cells % 0.1 %; Platelet Count (auto) 444 10^3/uL (140-450); Red Blood Cells 3.03 10^6/uL (4.0-5.20); Red Cell Distribution Width 15.7 % (11.8-14.3)
[2020-11-13 09:12] VITALS: BP 147/68
[2020-11-13 09:12] LABS: BUN/Creatinine Ratio 22.1; Calcium 9.3 mg/dL (8.5-10.1); Potassium 3.8 mmol/L (3.5-5.1)
[2020-11-13] MEDS: INSULIN LANTUS (GLARGINE) 1 /0.01ml (100units/ml) SC SCH ×2 (10:00→22:28)
[2020-11-13] MEDS: OLANZapine 5 MG TAB PO SCH (10:37)
[2020-11-13] MEDS: ASPirin-EC 81 mg tab PO SCH (10:37)
[2020-11-13] MEDS: HALOPERIDOL 5 MG TAB PO SCH ×2 (10:37→22:25)
[2020-11-13] MEDS: PANTOPRAZOLE 40 MG/10 ML VIAL INJ IV SCH ×2 (10:37→22:23)
[2020-11-13] MEDS: AMIODARONE HCL 200 MG TAB PO SCH ×2 (10:38→22:24)
[2020-11-13] MEDS: APIXABAN 5 MG TAB PO SCH ×2 (10:38→22:25)
[2020-11-13] MEDS: DIGOXIN 0.125 MG TAB PO SCH (10:38)
[2020-11-13] MEDS: LISINOPRIL 10 MG TAB PO SCH (10:39)
[2020-11-13] MEDS: METOPROLOL TARTRATE 25 MG TAB PO SCH ×2 (10:39→22:27)
[2020-11-13] MEDS ORDERED: ERTAPENEM SOD INJ 1 GM in SODIUM CHL 0.9% 50 ML IV ONE (11:45)
[2020-11-13 14:03] VITALS: BP 147/65
[2020-11-13 17:21] VITALS: BP 160/56
[2020-11-13 22:00] VITALS: BP 125/59
[2020-11-14] VITALS (7 sets, daily range): BP systolic 105–162; BP diastolic 44–66
[2020-11-14] MEDS: InsuLIN REG 1unit/0.01ml Soln (100units/ml) SC SCH ×4 (00:18→18:11)
[2020-11-14] MEDS: ACCU-CHEK COMFORT CURVE STRIP VI SCH ×4 (00:19→18:05)
[2020-11-14] MEDS: HYDROcodone-ACET 5/325MG TAB PO PRN ×2 (00:24→10:12)
[2020-11-14] MEDS: VANCOMYCIN 1GM/250ML 250 ML IV SCH (02:00)
[2020-11-14] MEDS: SODIUM CHLOR 0.9% PF (SALINE LOCK) 10ML VIAL/SYR IV SCH ×5 (05:47→21:59)
[2020-11-14] MEDS: MEROPENEM 1GM IVPB 100 ML IV SCH ×3 (05:47→22:05)
[2020-11-14] MEDS: hydrALAZINE HCL 20 MG/ML VL IV PRN ×2 (08:55→18:43)
[2020-11-14] MEDS: INSULIN LANTUS (GLARGINE) 1 /0.01ml (100units/ml) SC SCH ×2 (10:00→21:58)
[2020-11-14] MEDS: BUDESONIDE (INHALATION) 0.5 MG/2 ML NEB NEB SCH ×2 (10:42→19:11)
[2020-11-14] MEDS: ALBUTEROL SULF 2.5 MG/0.5ML(0.5%) NEB SOLN NEB PRN ×2 (10:42→19:11)
[2020-11-14] MEDS: PANTOPRAZOLE 40 MG/10 ML VIAL INJ IV SCH ×2 (10:49→21:59)
[2020-11-14] MEDS: ASPirin-EC 81 mg tab PO SCH (10:49)
[2020-11-14] MEDS: AMIODARONE HCL 200 MG TAB PO SCH ×2 (10:50→22:00)
[2020-11-14] MEDS: LISINOPRIL 10 MG TAB PO SCH (10:50)
[2020-11-14] MEDS: DIGOXIN 0.125 MG TAB PO SCH (10:50)
[2020-11-14] MEDS: OLANZapine 5 MG TAB PO SCH (10:50)
[2020-11-14] MEDS: METOPROLOL TARTRATE 25 MG TAB PO SCH ×2 (10:51→22:05)
[2020-11-14] MEDS: APIXABAN 5 MG TAB PO SCH ×2 (10:51→22:00)
[2020-11-14] MEDS: HALOPERIDOL 5 MG TAB PO SCH ×2 (10:51→22:01)
[2020-11-14] MEDS: Glucerna Carbsteady SHAKE Vanilla 8oz PO SCH ×2 (10:52→22:00)
[2020-11-15] MEDS: ACCU-CHEK COMFORT CURVE STRIP VI SCH ×4 (01:15→18:26)
[2020-11-15] MEDS: InsuLIN REG 1unit/0.01ml Soln (100units/ml) SC SCH ×4 (01:25→18:25)
[2020-11-15 04:42] VITALS: BP 151/58
[2020-11-15] MEDS: MEROPENEM 1GM IVPB 100 ML IV SCH ×2 (05:37→13:35)
[2020-11-15] MEDS: SODIUM CHLOR 0.9% PF (SALINE LOCK) 10ML VIAL/SYR IV SCH ×3 (05:38→17:13)
[2020-11-15] MEDS: BUDESONIDE (INHALATION) 0.5 MG/2 ML NEB NEB SCH ×2 (07:08→19:42)
[2020-11-15 08:30] VITALS: BP 144/76
[2020-11-15] MEDS: PANTOPRAZOLE 40 MG/10 ML VIAL INJ IV SCH (09:24)
[2020-11-15] MEDS: APIXABAN 5 MG TAB PO SCH (09:25)
[2020-11-15] MEDS: Glucerna Carbsteady SHAKE Vanilla 8oz PO SCH (09:25)
[2020-11-15] MEDS: ASPirin-EC 81 mg tab PO SCH (09:25)
[2020-11-15] MEDS: AMIODARONE HCL 200 MG TAB PO SCH (09:25)
[2020-11-15] MEDS: HYDROcodone-ACET 5/325MG TAB PO PRN (09:26)
[2020-11-15] MEDS: DIGOXIN 0.125 MG TAB PO SCH (09:26)
[2020-11-15] MEDS: HALOPERIDOL 5 MG TAB PO SCH (09:26)
[2020-11-15] MEDS: METOPROLOL TARTRATE 25 MG TAB PO SCH (09:26)
[2020-11-15] MEDS: OLANZapine 5 MG TAB PO SCH (09:27)
[2020-11-15] MEDS: LISINOPRIL 10 MG TAB PO SCH (09:27)
[2020-11-15] MEDS: INSULIN LANTUS (GLARGINE) 1 /0.01ml (100units/ml) SC SCH (09:56)
[2020-11-15] MEDS ORDERED: VANCOMYCIN 1GM/250ML 250 ML IV SCH (11:00)
[2020-11-15] MEDS ORDERED: INSULIN LANTUS (GLARGINE) 1 /0.01ml (100units/ml) SC ONE (11:15)
[2020-11-15 12:43] VITALS: BP 143/57
[2020-11-15 17:17] VITALS: BP 115/46
[2020-11-15] MEDS: ALBUTEROL SULF 2.5 MG/0.5ML(0.5%) NEB SOLN NEB PRN (19:42)
[2020-11-15] MEDS ORDERED: INSULIN LANTUS (GLARGINE) 1 /0.01ml (100units/ml) SC SCH (22:00)
== END 2020-11-15 21:53 | DRG 710 ==
LOC: ER 01:40 → EDBD 01:40 → TELE 10:01 → ICU WEST 18:06 → TELE-WESTW 11-07 03:31
PROVIDERS: ADMIT Hospitalist; ATTEND Hospitalist
PROC: 5A12012 Performance of Cardiac Output, Single, Manual (ICD-10-PCS; principal; 2020-10-31)
PROC: 5A1945Z Respiratory Ventilation, 24-96 Consecutive Hours (ICD-10-PCS; 2020-10-31)
PROC: 0BH17EZ Insertion of Endotracheal Airway into Trachea, Via Natural or Artificial Opening (ICD-10-PCS; 2020-10-31)
PROC: 02H633Z Insertion of Infusion Device into Right Atrium, Percutaneous Approach (ICD-10-PCS; 2020-10-31)
PROC: 0DJ08ZZ Inspection of Upper Intestinal Tract, Via Natural or Artificial Opening Endoscopic (ICD-10-PCS; 2020-11-02)
PROC: 30233N1 Transfusion of Nonautologous Red Blood Cells into Peripheral Vein, Percutaneous Approach (ICD-10-PCS; 2020-11-02)
PROC: 5A09357 Assistance with Respiratory Ventilation, Less than 24 Consecutive Hours, Continuous Positive Airway Pressure (ICD-10-PCS; 2020-11-03)
PROC: 5A09357 Assistance with Respiratory Ventilation, Less than 24 Consecutive Hours, Continuous Positive Airway Pressure (ICD-10-PCS; 2020-11-04)
PROC: 02703ZZ Dilation of Coronary Artery, One Artery, Percutaneous Approach (ICD-10-PCS; 2020-11-05)
PROC: 4A023N7 Measurement of Cardiac Sampling and Pressure, Left Heart, Percutaneous Approach (ICD-10-PCS; 2020-11-05)
PROC: B211YZZ Fluoroscopy of Multiple Coronary Arteries using Other Contrast (ICD-10-PCS; 2020-11-05)
PROC: 0QBM0ZZ Excision of Left Tarsal, Open Approach (ICD-10-PCS; 2020-11-10)
PROC: 02HV33Z Insertion of Infusion Device into Superior Vena Cava, Percutaneous Approach (ICD-10-PCS; 2020-11-12)
DX: A41.1 Sepsis due to other specified staphylococcus (principal); I21.A1 Myocardial infarction type 2; I46.9 Cardiac arrest, cause unspecified; J96.01 Acute respiratory failure with hypoxia; G93.1 Anoxic brain damage, not elsewhere classified; J18.9 Pneumonia, unspecified organism; I13.0 Hypertensive heart and chronic kidney disease with heart failure and stage 1 through stage 4 chronic kidney disease, or unspecified chronic kidney disease; G93.41 Metabolic encephalopathy; I50.9 Heart failure, unspecified; E11.51 Type 2 diabetes mellitus with diabetic peripheral angiopathy without gangrene; K29.70 Gastritis, unspecified, without bleeding; K29.80 Duodenitis without bleeding; D63.8 Anemia in other chronic diseases classified elsewhere; N18.9 Chronic kidney disease, unspecified; E11.22 Type 2 diabetes mellitus with diabetic chronic kidney disease; M86.8X8 Other osteomyelitis, other site; F32.9 Major depressive disorder, single episode, unspecified; I48.91 Unspecified atrial fibrillation; F20.9 Schizophrenia, unspecified; E66.9 Obesity, unspecified; I25.10 Atherosclerotic heart disease of native coronary artery without angina pectoris; E87.6 Hypokalemia; E78.5 Hyperlipidemia, unspecified; R55 Syncope and collapse; J44.0 Chronic obstructive pulmonary disease with (acute) lower respiratory infection; E11.621 Type 2 diabetes mellitus with foot ulcer; L97.429 Non-pressure chronic ulcer of left heel and midfoot with unspecified severity; L97.529 Non-pressure chronic ulcer of other part of left foot with unspecified severity; E11.69 Type 2 diabetes mellitus with other specified complication; Z16.12 Extended spectrum beta lactamase (ESBL) resistance; Z68.34 Body mass index [BMI] 34.0-34.9, adult; Z86.73 Personal history of transient ischemic attack (TIA), and cerebral infarction without residual deficits; Z79.02 Long term (current) use of antithrombotics/antiplatelets; Z79.82 Long term (current) use of aspirin; Z88.0 Allergy status to penicillin; I25.2 Old myocardial infarction; Z80.3 Family history of malignant neoplasm of breast; Z82.49 Family history of ischemic heart disease and other diseases of the circulatory system; Z83.3 Family history of diabetes mellitus; Z86.16 Personal history of COVID-19
CPT/HCPCS: 31500; 36415; 36556; 36600; 43235; 70450; 70551; 71045; 71250; 71275; 72125; 73620; 74176; 80048; 80053; 80202; 81001; 82565; 82805; 82962; 83605; 83735; 83880; 84443; 84484; 85014; 85018; 85025; 85379; 85610; 85730; 86850; 86900; 86901; 86920; 87040; 87070; 87075; 87077; 87081; 87086; 87186; 87205; 87426; 92507; 92610; 92920; 92950; 93005; 93306; 93458; 93925; 93970; 94002; 94003; 94640; 94660; 95819; 97110; 97116; 97530; 99152; 99153; 99291; C9113; G0378; J1100; J1335; J1756; J1815; J1956; J2185; J2250; J2405; J2704; J3480; J3490; J7042; J7060; Q9967

== ENCOUNTER 2021-03-21 01:35 | Emergency (ER) | payer MEDICAID ==
[~2021-03-21] VITALS: Ht 167.6 cm; Wt 80.7 kg
[~2021-03-21 01:35] MED LIST changes: +ALBU0.084 NEB; +ASPI-543 PO; -ATO40T PO; +ATOR-47 PO; -BENZ2TAB2 PO; +CALC-239 PO; +CYAN100031 PO; +FERR325T20 PO; +FURO1TAB31 PO; +GABA400C11 PO; -GLYB5TAB9 PO; -HAL5T PO; +HALO5TAB PO; -HYDR25TA5 PO; +IBUP800T27 PO; +INSDRIP SC; +INSU100I4 SC; +INSU1INJ19 SC; -LURA40TA PO; +MAGN400T40 PO; -METF-372 PO; +METO-289 PO; +MISCCAP66 PO; +OLAN1TAB19 PO; +POTA-180 PO; +SENN-136 PO; +SILV-21 TOP; +TICA90TA PO; +ZINC220C8 PO; +[UNRECOGNIZED DRUG - CODE] PO
[2021-03-21 02:36] LABS: Basophils # (auto) 0 10 ^3/uL (0-0.2); Basophils % (auto) 0.5 % (0.0-2.0); Eosinophils # (auto) 0.1 10 ^3/uL (0-0.8); Eosinophils % (auto) 1.4 % (0.0-7.0); Hematocrit 26.9 % (36.0-46.0); Hemoglobin 8.9 g/dL (12.2-16.2); Lymphocytes # (auto) 1.9 10 ^3/uL (0.4-5.4); Lymphocytes % (auto) 47.4 % (10.0-50.0); Mean Corpuscular Hemoglobin 30.3 pg (28.0-32.0); Mean Corpuscular Hgb Conc. 33.2 g/dL (32.0-36.0); Mean Corpuscular Volume 91.3 fL (80.0-100.0); Monocytes # (auto) 0.5 10 ^3/uL (0-1.3); Monocytes % (auto) 12.2 % (0.0-12.0); Neutrophils # (auto) 1.5 10 ^3/uL (1.6-8.6); Neutrophils % (auto) 38.5 % (37.0-80.0); Nucleated Red Blood Cells % 0.1 %; Red Blood Cells 2.95 10^6/uL (4.0-5.20); Red Cell Distribution Width 16.3 % (11.8-14.3)
[2021-03-21 02:46] LABS: INR 1.08 (0.9-1.15)
[2021-03-21 02:49] LABS: Alanine Aminotransferase 17 U/L (13-56); Albumin 2.5 g/dL (3.4-5.0); Anion Gap 6 (5-15); Aspartate Aminotransferase 6 U/L (15-37); BUN/Creatinine Ratio 32.1; Blood Urea Nitrogen 34 mg/dL (7-18); Calcium 8.4 mg/dL (8.5-10.1); Carbon Dioxide 24 mmol/L (21-32); Chloride 113 mmol/L (98-107); GFR African American 68 mL/min; GFR Non-African American 56 mL/min; Glucose 103 mg/dL (74-106); Magnesium 2.3 mg/dL (1.6-2.6); Potassium 4.2 mmol/L (3.5-5.1); Sodium 143 mmol/L (136-145)
[2021-03-21 02:54] LABS: Alkaline Phosphatase 48 U/L (45-117); Bilirubin, Total 0.2 mg/dL (0.2-1.0); Total Protein 6.3 g/dL (6.4-8.2)
[2021-03-21] MEDS ORDERED: AZITHROMYCIN 500MG/ 250ML 250 ML IV ONE (05:45)
[2021-03-21] MEDS ORDERED: ALBUTEROL SULF 2.5 MG/0.5ML(0.5%) NEB SOLN NEB ONE (05:45)
[2021-03-21] MEDS ORDERED: cefTRIAXone 1GM/50ML D5W 50 ML IV ONE (05:45)
[2021-03-21] MEDS ORDERED: methylPREDNISolone SOD SUCC 125 MG/2 ML VL IV ONE (05:45)
[2021-03-21] MEDS ORDERED: IPRATROPIUM BROM 0.5 MG/2.5ML INH SOL NEB ONE (05:45)
[2021-03-21 10:26] VITALS: BP 147/42
== END 2021-03-21 10:26 | disposition home or self-care (01) ==
LOC: EDBD 01:35 → ER 01:36
DX: J44.1 Chronic obstructive pulmonary disease with (acute) exacerbation (principal); I11.0 Hypertensive heart disease with heart failure; I50.9 Heart failure, unspecified; E11.9 Type 2 diabetes mellitus without complications; E78.5 Hyperlipidemia, unspecified
CPT/HCPCS: 36415; 71045; 80053; 83735; 83880; 84484; 85025; 85610; 93005; 94640; 96365; 96366; 96367; 96375; 99285; J0456; J0696; J2930; J7644

== ENCOUNTER 2022-07-09 11:22 | Inpatient (IN) | payer MEDICAID ==
[~2022-07-09] VITALS: Ht 167.6 cm; Wt 97.6 kg
[2022-07-09] MEDS ORDERED: ACETAMINOPHEN 650 mg PER 20.3 mL UD PO ONE (12:00)
[2022-07-09] MEDS ORDERED: SODIUM CHLORIDE 0.9% 1,000 ML IV ONE ×2 (12:45→16:07)
[2022-07-09 14:26] LABS: Basophils # (auto) 0 10 ^3/uL (0-0.2); Basophils % (auto) 0.5 % (0.0-2.0); Eosinophils # (auto) 0 10 ^3/uL (0-0.8); Hematocrit 33.7 % (36.0-46.0); Hemoglobin 11.2 g/dL (12.2-16.2); Lymphocytes # (auto) 0.9 10 ^3/uL (0.4-5.4); Lymphocytes % (auto) 11.7 % (10.0-50.0); Mean Corpuscular Hemoglobin 30.9 pg (28.0-32.0); Mean Corpuscular Hgb Conc. 33.3 g/dL (32.0-36.0); Mean Corpuscular Volume 92.8 fL (80.0-100.0); Monocytes # (auto) 0.9 10 ^3/uL (0-1.3); Monocytes % (auto) 11.7 % (0.0-12.0); Neutrophils # (auto) 5.8 10 ^3/uL (1.6-8.6); Neutrophils % (auto) 76.1 % (37.0-80.0); Nucleated Red Blood Cells % 0.1 %; Red Blood Cells 3.63 10^6/uL (4.0-5.20); Red Cell Distribution Width 15.2 % (11.8-14.3); White Blood Cell 7.6 10^3/uL (4.4-10.8)
[2022-07-09 14:43] LABS: Potassium 5.5 mmol/L (3.5-5.1)
[2022-07-09 14:44] LABS: BUN/Creatinine Ratio 25.2
[2022-07-09 14:47] LABS: Bilirubin, Total 0.4 mg/dL (0.2-1.0); Calcium 9.4 mg/dL (8.5-10.1)
[2022-07-09 14:48] LABS: Albumin 3.3 g/dL (3.4-5.0); Total Protein 7.8 g/dL (6.4-8.2)
[2022-07-09] MEDS ORDERED: ASPirin 325 MG TAB PO ONE (15:15)
[2022-07-09] MEDS ORDERED: CEFEPIME 1GM/ 50ML 50 ML IV ONE (16:00)
[2022-07-09] MEDS ORDERED: VANCOMYCIN 1GM/250ML 250 ML IV ONE (16:00)
[2022-07-09] MEDS ORDERED: DEXTROSE (50%) 50ML SYRG IV ONE (16:15)
[2022-07-09] MEDS ORDERED: SODIUM BICARBONATE 8.4% INJ 50ML SYRINGE IV ONE (16:15)
[2022-07-09] MEDS ORDERED: CALCIUM GLUC 1,000mg/50ml-NS 50 ML IV ONE (16:15)
[2022-07-09] MEDS ORDERED: InsuLIN REG 1unit/0.01ml Soln (100units/ml) IV ONE (16:15)
[2022-07-09] MEDS ORDERED: SODIUM ZIRCONIUM CYCL 10 GM PAK PO ONE (16:15)
[2022-07-09] MEDS ORDERED: ONDANSETRON HCL 4 MG/2 ML VIAL IV PRN (16:45)
[2022-07-09] MEDS ORDERED: VANCOMYCIN PER PHARMACY 0 MG IV SCH (16:45)
[2022-07-09] MEDS ORDERED: NITROGLYCERIN 0.4 MG SL TAB SL PRN (16:45)
[2022-07-09] MEDS ORDERED: ACETAMINOPHEN 325 MG TAB PO PRN (16:45)
[2022-07-09] MEDS ORDERED: MORPHINE SULFATE INJ 2 MG/ml SYRG IV PRN ×2 (16:45)
[2022-07-09] MEDS ORDERED: SOD CHL 0.45% 1,000 ML IV ONE (16:45)
[2022-07-09] MEDS ORDERED: HYDROcodone-ACET 5/325MG TAB PO PRN (16:45)
[2022-07-09 17:53] LABS: Urine Bacteria FEW /hpf (None Seen); Urine Blood Negative /uL (Negative); Urine Specific Gravity 1.019 (1.001-1.035); Urine WBC 1 /hpf (0 - 5)
[2022-07-09 18:09] LABS: Protein, Urine 66.9 mg/dL (0.0-11.9)
[2022-07-09] MEDS ORDERED: cefEPIME 1gm INJ VIAL IM ONE (19:00)
[2022-07-09] MEDS ORDERED: ALBUTEROL SULF 2.5 MG/0.5ML(0.5%) NEB SOLN NEB ONE (19:00)
[2022-07-09 19:18] LABS: BUN/Creatinine Ratio 28.6; Calcium 9.1 mg/dL (8.5-10.1); Potassium 4.3 mmol/L (3.5-5.1)
[2022-07-09 19:30] LABS: Creatinine, Urine 69 mg/dL (30.0-125.0); Sodium Urine 78 mmol/L (40-220)
[2022-07-09] MEDS: ENOXAPARIN SOD 100 MG/1 ML SYRINGE SC SCH (19:54)
[2022-07-09] MEDS: VANCOMYCIN 1GM/250ML 250 ML IV SCH (20:14)
[2022-07-09] MEDS: ATORVASTATIN 20 MG TAB PO SCH (22:32)
[2022-07-09] MEDS: METOPROLOL TARTRATE 25 MG TAB PO SCH (22:34)
[2022-07-09] MEDS: ASCORBIC ACID 500 MG TAB PO SCH (22:34)
[2022-07-09] MEDS: CEFEPIME 2 GM in SODIUM CHL 0.9% 50 ML IV SCH (23:00)
[2022-07-10] MEDS: VANCOMYCIN 1GM/250ML 250 ML IV SCH ×2 (02:47→18:59)
[2022-07-10] MEDS: THROAT LOZENGES(CEPASTAT) MT PRN (02:49)
[2022-07-10] MEDS: ENOXAPARIN SOD 100 MG/1 ML SYRINGE SC SCH ×2 (05:13→17:08)
[2022-07-10 09:46] LABS: Basophils # (auto) 0.1 10 ^3/uL (0-0.2); Basophils % (auto) 1.2 % (0.0-2.0); Eosinophils # (auto) 0 10 ^3/uL (0-0.8); Eosinophils % (auto) 0.1 % (0.0-7.0); Hematocrit 28.5 % (36.0-46.0); Hemoglobin 9.5 g/dL (12.2-16.2); Lymphocytes # (auto) 1.5 10 ^3/uL (0.4-5.4); Mean Corpuscular Hemoglobin 30.1 pg (28.0-32.0); Mean Corpuscular Hgb Conc. 33.5 g/dL (32.0-36.0); Mean Corpuscular Volume 89.8 fL (80.0-100.0); Monocytes # (auto) 0.7 10 ^3/uL (0-1.3); Monocytes % (auto) 10.1 % (0.0-12.0); Neutrophils % (auto) 68.6 % (37.0-80.0); Red Blood Cells 3.17 10^6/uL (4.0-5.20); White Blood Cell 7.3 10^3/uL (4.4-10.8)
[2022-07-10] MEDS: MULTIPLE VITAMIN TAB PO SCH (10:00)
[2022-07-10] MEDS: ASPirin 81 mg TAB PO SCH (10:38)
[2022-07-10] MEDS: ZINC SULFATE 220mg CAP or TAB PO SCH (10:38)
[2022-07-10] MEDS: ASCORBIC ACID 500 MG TAB PO SCH ×2 (10:39→22:29)
[2022-07-10] MEDS: METOPROLOL TARTRATE 25 MG TAB PO SCH ×2 (10:40→22:29)
[2022-07-10 10:59] LABS: Albumin 2.8 g/dL (3.4-5.0); BUN/Creatinine Ratio 24.3; Potassium 3.9 mmol/L (3.5-5.1)
[2022-07-10 11:02] LABS: Bilirubin, Total 0.3 mg/dL (0.2-1.0); Total Protein 6.6 g/dL (6.4-8.2)
[2022-07-10] MEDS: CEFEPIME 2 GM in SODIUM CHL 0.9% 50 ML IV SCH ×2 (11:31→23:58)
[2022-07-10] MEDS: ATORVASTATIN 20 MG TAB PO SCH (22:29)
[2022-07-11] MEDS: VANCOMYCIN 1GM/250ML 250 ML IV SCH ×3 (03:20→22:33)
[2022-07-11] MEDS: ENOXAPARIN SOD 100 MG/1 ML SYRINGE SC SCH ×2 (05:15→16:50)
[2022-07-11 05:25] LABS: Basophils # (auto) 0 10 ^3/uL (0-0.2); Basophils % (auto) 0.5 % (0.0-2.0); Eosinophils # (auto) 0 10 ^3/uL (0-0.8); Eosinophils % (auto) 0.7 % (0.0-7.0); Hematocrit 25.7 % (36.0-46.0); Hemoglobin 8.8 g/dL (12.2-16.2); Lymphocytes # (auto) 1.5 10 ^3/uL (0.4-5.4); Lymphocytes % (auto) 26.4 % (10.0-50.0); Mean Corpuscular Hemoglobin 30.3 pg (28.0-32.0); Mean Corpuscular Hgb Conc. 34.2 g/dL (32.0-36.0); Mean Corpuscular Volume 88.6 fL (80.0-100.0); Monocytes # (auto) 0.7 10 ^3/uL (0-1.3); Monocytes % (auto) 11.8 % (0.0-12.0); Neutrophils # (auto) 3.5 10 ^3/uL (1.6-8.6); Neutrophils % (auto) 60.6 % (37.0-80.0); Red Cell Distribution Width 14.7 % (11.8-14.3); White Blood Cell 5.7 10^3/uL (4.4-10.8)
[2022-07-11 05:36] LABS: Albumin 2.5 g/dL (3.4-5.0); Calcium 9.1 mg/dL (8.5-10.1); Potassium 3.7 mmol/L (3.5-5.1)
[2022-07-11 05:38] LABS: BUN/Creatinine Ratio 27.2
[2022-07-11 05:51] LABS: Bilirubin, Total 0.4 mg/dL (0.2-1.0); Total Protein 6.8 g/dL (6.4-8.2)
[2022-07-11] MEDS: ASPirin 81 mg TAB PO SCH (10:41)
[2022-07-11] MEDS: CEFEPIME 2 GM in SODIUM CHL 0.9% 50 ML IV SCH ×2 (10:41→23:55)
[2022-07-11] MEDS: ZINC SULFATE 220mg CAP or TAB PO SCH (10:42)
[2022-07-11] MEDS: METOPROLOL TARTRATE 25 MG TAB PO SCH ×2 (10:42→22:34)
[2022-07-11] MEDS: ASCORBIC ACID 500 MG TAB PO SCH ×2 (10:42→22:33)
[2022-07-11] MEDS: MULTIPLE VITAMIN TAB PO SCH (11:15)
[2022-07-11] MEDS: SOD CHL 0.9%/ KCL 20MEQ 1,000 ML IV SCH (14:25)
[2022-07-11] MEDS ORDERED: DEXTROSE (50%) 50ML SYRG IV PRN (21:30)
[2022-07-11 22:00] VITALS: BP 188/67
[2022-07-11] MEDS: ACCU-CHEK COMFORT CURVE STRIP VI SCH (22:33)
[2022-07-11] MEDS: ATORVASTATIN 20 MG TAB PO SCH (22:34)
[2022-07-11] MEDS: InsuLIN REG 1unit/0.01ml Soln (100units/ml) SC SCH (22:40)
[2022-07-12] MEDS: hydrALAZINE HCL 20 MG/ML VL IV PRN ×3 (00:03→23:49)
[2022-07-12] MEDS: SOD CHL 0.9%/ KCL 20MEQ 1,000 ML IV SCH ×3 (04:09→17:42)
[2022-07-12] MEDS: ENOXAPARIN SOD 100 MG/1 ML SYRINGE SC SCH (04:16)
[2022-07-12 05:00] VITALS: BP 181/65
[2022-07-12] MEDS: ACCU-CHEK COMFORT CURVE STRIP VI SCH ×4 (05:56→21:37)
[2022-07-12] MEDS: VANCOMYCIN 1GM/250ML 250 ML IV SCH ×3 (05:56→08:50)
[2022-07-12] MEDS: InsuLIN REG 1unit/0.01ml Soln (100units/ml) SC SCH ×4 (06:03→21:39)
[2022-07-12] MEDS ORDERED: VANCOMYCIN PER PHARMACY 0 MG IV SCH (07:30)
[2022-07-12 09:00] VITALS: BP 170/62
[2022-07-12] MEDS: ZINC SULFATE 220mg CAP or TAB PO SCH (09:00)
[2022-07-12] MEDS: METOPROLOL TARTRATE 25 MG TAB PO SCH ×2 (09:00→21:37)
[2022-07-12] MEDS: ASPirin 81 mg TAB PO SCH (09:00)
[2022-07-12] MEDS: ASCORBIC ACID 500 MG TAB PO SCH ×2 (09:01→21:37)
[2022-07-12] MEDS: MULTIPLE VITAMIN TAB PO SCH (09:01)
[2022-07-12] MEDS: THROAT LOZENGES(CEPASTAT) MT PRN (09:59)
[2022-07-12 13:00] VITALS: BP 177/64
[2022-07-12] MEDS ORDERED: VANCOMYCIN 1GM/250ML 250 ML IV SCH (15:00)
[2022-07-12] MEDS ORDERED: ATOR-47 PO (15:14)
[2022-07-12 17:00] VITALS: BP 140/56
[2022-07-12] MEDS: ATORVASTATIN 20 MG TAB PO SCH (21:36)
[2022-07-12] MEDS: TICAGRELOR 90 MG TAB PO SCH (21:36)
[2022-07-12 22:00] VITALS: BP 161/67
[2022-07-13] MEDS: SOD CHL 0.9%/ KCL 20MEQ 1,000 ML IV SCH (04:32)
[2022-07-13 05:00] VITALS: BP 154/53
[2022-07-13] MEDS: ACCU-CHEK COMFORT CURVE STRIP VI SCH ×3 (06:38→18:28)
[2022-07-13 06:41] LABS: Albumin 2.5 g/dL (3.4-5.0); Calcium 8.8 mg/dL (8.5-10.1); Potassium 5.1 mmol/L (3.5-5.1)
[2022-07-13] MEDS: InsuLIN REG 1unit/0.01ml Soln (100units/ml) SC SCH ×3 (06:42→18:29)
[2022-07-13 06:47] LABS: BUN/Creatinine Ratio 24.1; Bilirubin, Total 0.4 mg/dL (0.2-1.0); Total Protein 6.7 g/dL (6.4-8.2)
[2022-07-13 09:00] VITALS: BP 176/69
[2022-07-13] MEDS: MULTIPLE VITAMIN TAB PO SCH (09:16)
[2022-07-13] MEDS: ZINC SULFATE 220mg CAP or TAB PO SCH (09:17)
[2022-07-13] MEDS: ASPirin 81 mg TAB PO SCH (09:17)
[2022-07-13] MEDS: TICAGRELOR 90 MG TAB PO SCH (09:17)
[2022-07-13] MEDS: METOPROLOL TARTRATE 25 MG TAB PO SCH (09:17)
[2022-07-13] MEDS: ASCORBIC ACID 500 MG TAB PO SCH (09:17)
[2022-07-13] MEDS ORDERED: VANCOMYCIN 1GM/250ML 250 ML IV SCH (11:00)
[2022-07-13 13:00] VITALS: BP 169/71
[2022-07-13] MEDS ORDERED: FUROSEMIDE 40 MG/4 ML VIAL IV SCH (13:45)
[2022-07-13] MEDS: hydrALAZINE HCL 20 MG/ML VL IV PRN (14:38)
[2022-07-13 17:00] VITALS: BP 151/50
== END 2022-07-13 18:29 | disposition home or self-care (01) | DRG 720 ==
LOC: ER 11:26 → TELE 16:48 → TELE-WESTW 07-11 21:20
PROVIDERS: ADMIT Internal Medicine; ATTEND Internal Medicine
DX: A41.89 Other specified sepsis (principal); N17.0 Acute kidney failure with tubular necrosis; J12.82 Pneumonia due to coronavirus disease 2019; U07.1 COVID-19; I21.4 Non-ST elevation (NSTEMI) myocardial infarction; D63.1 Anemia in chronic kidney disease; E11.22 Type 2 diabetes mellitus with diabetic chronic kidney disease; E11.65 Type 2 diabetes mellitus with hyperglycemia; N18.30 Chronic kidney disease, stage 3 unspecified; B96.89 Other specified bacterial agents as the cause of diseases classified elsewhere; E11.42 Type 2 diabetes mellitus with diabetic polyneuropathy; E78.5 Hyperlipidemia, unspecified; E66.9 Obesity, unspecified; E87.1 Hypo-osmolality and hyponatremia; E87.5 Hyperkalemia; E86.0 Dehydration; I13.0 Hypertensive heart and chronic kidney disease with heart failure and stage 1 through stage 4 chronic kidney disease, or unspecified chronic kidney disease; I25.10 Atherosclerotic heart disease of native coronary artery without angina pectoris; I50.9 Heart failure, unspecified; J44.0 Chronic obstructive pulmonary disease with (acute) lower respiratory infection; E11.51 Type 2 diabetes mellitus with diabetic peripheral angiopathy without gangrene; J44.1 Chronic obstructive pulmonary disease with (acute) exacerbation; Z79.4 Long term (current) use of insulin; Z78.9 Other specified health status; Z79.82 Long term (current) use of aspirin; Z79.899 Other long term (current) drug therapy; Z80.3 Family history of malignant neoplasm of breast; Z82.49 Family history of ischemic heart disease and other diseases of the circulatory system; Z83.3 Family history of diabetes mellitus; Z86.73 Personal history of transient ischemic attack (TIA), and cerebral infarction without residual deficits; Z88.0 Allergy status to penicillin; Z89.512 Acquired absence of left leg below knee; Z95.5 Presence of coronary angioplasty implant and graft; Z68.34 Body mass index [BMI] 34.0-34.9, adult
CPT/HCPCS: 36415; 71045; 76775; 80048; 80053; 80202; 81001; 82306; 82565; 82570; 82962; 83605; 83970; 84100; 84156; 84300; 84484; 85025; 85379; 87040; 87077; 87081; 87086; 87186; 87426; 87804; 93005; 93306; 93970; 96360; 96361; 99291; G0378; J1815

== ENCOUNTER 2023-08-02 09:33 | Inpatient (IN) | payer OTHER, MEDICAID ==
[~2023-08-02] VITALS: Ht 167.6 cm; Wt 96.5 kg
[~2023-08-02 09:33] MED LIST changes: -DIVA500T2 PO; +DIVA500T3 PO; +GABA-1251 PO; -GABA400C11 PO; -IBUP800T27 PO; -LOSA25TA2 PO; +LOSA25TA5 PO; -SENN-136 PO; +SENN1TAB91 PO; -SILV-21 TOP; +SILV-51 TOP
[2023-08-02 10:00] VITALS: PULSE 150; RESP 17; O2SAT 97
[2023-08-02] MEDS ORDERED: dilTIAZem 25 MG/5 ML VIAL IV ONE (10:00)
[2023-08-02 10:29] LABS: Chloride 107 mmol/L (98-107); Potassium 4.3 mmol/L (3.5-5.1); Sodium 140 mmol/L (136-145)
[2023-08-02 10:30] LABS: Anion Gap 10 (5-15); Carbon Dioxide 23 mmol/L (20-30)
[2023-08-02 10:31] LABS: Calcium 9.4 mg/dL (8.7-10.4)
[2023-08-02 10:35] LABS: Glucose 101 mg/dL (74-106)
[2023-08-02 10:36] LABS: Blood Urea Nitrogen 32 mg/dL (9-23); Magnesium 1.9 mg/dL (1.6-2.6)
[2023-08-02 10:41] LABS: Basophils # (auto) 0 10 ^3/uL (0-0.2); Basophils % (auto) 0.6 % (0.0-2.0); Eosinophils # (auto) 0.1 10 ^3/uL (0-0.8); Eosinophils % (auto) 2.2 % (0.0-7.0); Hemoglobin 11.9 g/dL (12.2-16.2); Lymphocytes # (auto) 2.3 10 ^3/uL (0.4-5.4); Lymphocytes % (auto) 39.8 % (10.0-50.0); Mean Corpuscular Hemoglobin 29.6 pg (28.0-32.0); Mean Corpuscular Hgb Conc. 32.3 g/dL (32.0-36.0); Mean Corpuscular Volume 91.8 fL (80.0-100.0); Monocytes # (auto) 0.5 10 ^3/uL (0-1.3); Monocytes % (auto) 8.4 % (0.0-12.0); Neutrophils # (auto) 2.9 10 ^3/uL (1.6-8.6); Nucleated Red Blood Cells % 0.1 %; Red Blood Cells 4.03 10^6/uL (4.0-5.20); Red Cell Distribution Width 17.2 % (11.8-14.3); White Blood Cell 5.8 10^3/uL (4.4-10.8)
[2023-08-02] MEDS ORDERED: DEXTROSE (50%) 50ML SYRG IV PRN (16:45)
[2023-08-02] MEDS ORDERED: ONDANSETRON HCL 4 MG/2 ML VIAL IV PRN (16:45)
[2023-08-02] MEDS ORDERED: MORPHINE SULFATE INJ 2 MG/ml SYRG IV PRN (16:45)
[2023-08-02] MEDS ORDERED: ACETAMINOPHEN 325 MG TAB PO PRN (16:45)
[2023-08-02] MEDS ORDERED: NITROGLYCERIN 0.4 MG SL TAB SL PRN (16:45)
[2023-08-02] MEDS: ACCU-CHEK COMFORT CURVE STRIP VI SCH ×2 (18:20→22:06)
[2023-08-02] MEDS: InsuLIN REG 1unit/0.01ml Soln (100units/ml) SC SCH ×2 (18:20→22:08)
[2023-08-02 19:40] VITALS: PULSE 92; RESP 19; O2SAT 95
[2023-08-02 22:05] LABS: Urine Epithelial Cast None Seen /hpf (<5)
[2023-08-02 22:07] LABS: COVID19 ANTIGEN SOFIA FIA NEGATIVE (NEGATIVE)
[2023-08-02 22:28] LABS: Urine Bacteria NONE SEEN /hpf (None Seen); Urine Blood Negative /uL (Negative); Urine Clarity Clear (Clear); Urine Color Colorless (Yellow); Urine Protein, UAD TRACE (Negative); Urine Specific Gravity 1.022 (1.001-1.035); Urine Urobilinogen Normal (Negative); Urine WBC 10 /hpf (0 - 5)
[2023-08-03] MEDS: hydrALAZINE HCL 20 MG/ML VL IV PRN (01:06)
[2023-08-03] MEDS: LABETALOL HCL 5 MG/ML 4ML SYRINGE IV PRN ×2 (04:40→21:07)
[2023-08-03] MEDS: ACCU-CHEK COMFORT CURVE STRIP VI SCH ×4 (06:38→22:20)
[2023-08-03] MEDS: InsuLIN REG 1unit/0.01ml Soln (100units/ml) SC SCH ×4 (06:40→22:24)
[2023-08-03 07:30] VITALS: PULSE 91; RESP 19; O2SAT 97
[2023-08-03] MEDS: MORPHINE SULFATE INJ 2 MG/ml SYRG IV PRN (09:33)
[2023-08-03] MEDS ORDERED: levoFLOXacin 500MG 100 ML IV SCH (10:00)
[2023-08-03] MEDS: METOPROLOL SUCCINATE XL 50 MG TAB PO SCH (10:07)
[2023-08-03] MEDS: ENOXAPARIN SOD 40 MG/0.4 ML SYRINGE SC SCH (10:07)
[2023-08-03 19:35] VITALS: PULSE 86; RESP 22; O2SAT 97
[2023-08-03] MEDS: HYDROcodone-ACET 5/325MG TAB PO PRN (21:06)
[2023-08-03 23:39] VITALS: BP 164/65; PULSE 83; PULSE 87; RESP 16; TEMP 98.6; O2SAT 96
[2023-08-03] MEDS ORDERED: METO25TA93 PO (23:50)
[2023-08-04] VITALS (8 sets, daily range): BP systolic 124–160; BP diastolic 47–76; PULSE 22–79; RESP 18–20; TEMP 97.7–98.6; O2SAT 95–100
[2023-08-04] MEDS: HYDROcodone-ACET 5/325MG TAB PO PRN (03:49)
[2023-08-04] MEDS: InsuLIN REG 1unit/0.01ml Soln (100units/ml) SC SCH ×4 (06:04→21:50)
[2023-08-04] MEDS: ACCU-CHEK COMFORT CURVE STRIP VI SCH ×4 (06:05→21:50)
[2023-08-04] MEDS: ENOXAPARIN SOD 40 MG/0.4 ML SYRINGE SC SCH (09:30)
[2023-08-04] MEDS: METOPROLOL SUCCINATE XL 50 MG TAB PO SCH (09:31)
[2023-08-04] MEDS: hydrALAZINE HCL 20 MG/ML VL IV PRN (12:05)
[2023-08-04] MEDS: MORPHINE SULFATE INJ 2 MG/ml SYRG IV PRN ×2 (12:46→21:50)
[2023-08-04] MEDS ORDERED: OLANZapine 5 MG TAB PO ONE (14:45)
[2023-08-04] MEDS ORDERED: HALOPERIDOL 5 MG TAB PO PRN (14:45)
[2023-08-04] MEDS: cefTRIAXone 1GM/50ML D5W 50 ML IV SCH (15:57)
[2023-08-05] VITALS (8 sets, daily range): BP systolic 137–165; BP diastolic 47–71; PULSE 71–81; RESP 18–22; TEMP 36.6; O2SAT 97–100
[2023-08-05] MEDS: hydrALAZINE HCL 20 MG/ML VL IV PRN (05:14)
[2023-08-05] MEDS: ACCU-CHEK COMFORT CURVE STRIP VI SCH ×2 (06:19→11:37)
[2023-08-05] MEDS: InsuLIN REG 1unit/0.01ml Soln (100units/ml) SC SCH ×2 (06:19→11:10)
[2023-08-05] MEDS: cefTRIAXone 1GM/50ML D5W 50 ML IV SCH (09:05)
[2023-08-05] MEDS: METOPROLOL SUCCINATE XL 50 MG TAB PO SCH (09:06)
[2023-08-05] MEDS: ENOXAPARIN SOD 40 MG/0.4 ML SYRINGE SC SCH (09:06)
[2023-08-05] MEDS ORDERED: OLANZapine 5 MG TAB PO SCH (10:00)
[2023-08-05] MEDS ORDERED: CEPH500C PO (16:25)
[2023-08-05] MEDS ORDERED: APIX5TAB PO (16:25)
[2023-08-05] MEDS ORDERED: APIXABAN 5 MG TAB PO SCH (19:00)
== END 2023-08-05 17:10 | disposition home or self-care (01) | DRG 309 ==
LOC: ER 09:33 → EDUNIT# 09:33 → EDBD 09:33 → TELE 16:45 → TELE-EAST 08-03 23:24
PROVIDERS: ADMIT Internal Medicine; ATTEND Internal Medicine
DX: I48.0 Paroxysmal atrial fibrillation (principal); I50.32 Chronic diastolic (congestive) heart failure; N39.0 Urinary tract infection, site not specified; I25.10 Atherosclerotic heart disease of native coronary artery without angina pectoris; I11.0 Hypertensive heart disease with heart failure; E11.9 Type 2 diabetes mellitus without complications; J44.9 Chronic obstructive pulmonary disease, unspecified; F41.9 Anxiety disorder, unspecified; F29 Unspecified psychosis not due to a substance or known physiological condition; Z20.822 Contact with and (suspected) exposure to COVID-19; F32.A Depression, unspecified; Z89.512 Acquired absence of left leg below knee; Z79.82 Long term (current) use of aspirin; Z79.899 Other long term (current) drug therapy; Z80.3 Family history of malignant neoplasm of breast; Z83.3 Family history of diabetes mellitus; Z82.49 Family history of ischemic heart disease and other diseases of the circulatory system; I25.2 Old myocardial infarction; Z98.61 Coronary angioplasty status
CPT/HCPCS: 36415; 71045; 80048; 81001; 82962; 83605; 83735; 83880; 84484; 85025; 87040; 87426; 93005; 93306; 97163; G0378; J1815; J1956; J3490

== ENCOUNTER 2023-09-19 21:09 | Inpatient (IN) | payer OTHER, MEDICAID ==
[~2023-09-19] VITALS: Ht 167.6 cm; Wt 101.8 kg
[~2023-09-19 21:09] MED LIST changes: +APIX5TAB PO; +CEPH500C PO; +GABA-1251; +METO25TA93 PO; -ZINC220C8 PO
[2023-09-19 21:48] LABS: Basophils # (auto) 0.1 10 ^3/uL (0-0.2); Basophils % (auto) 0.9 % (0.0-2.0); Eosinophils # (auto) 0.1 10 ^3/uL (0-0.8); Eosinophils % (auto) 1.3 % (0.0-7.0); Lymphocytes # (auto) 2.7 10 ^3/uL (0.4-5.4); Lymphocytes % (auto) 28.7 % (10.0-50.0); Mean Corpuscular Hemoglobin 29.1 pg (28.0-32.0); Mean Corpuscular Hgb Conc. 32.3 g/dL (32.0-36.0); Mean Corpuscular Volume 89.9 fL (80.0-100.0); Monocytes # (auto) 0.9 10 ^3/uL (0-1.3); Monocytes % (auto) 9.9 % (0.0-12.0); Neutrophils # (auto) 5.6 10 ^3/uL (1.6-8.6); Neutrophils % (auto) 59.2 % (37.0-80.0); Red Blood Cells 3.44 10^6/uL (4.0-5.20); Red Cell Distribution Width 16.8 % (11.8-14.3); White Blood Cell 9.5 10^3/uL (4.4-10.8)
[2023-09-19 22:00] VITALS: PULSE 94; RESP 10; O2SAT 95
[2023-09-19 22:07] LABS: Alanine Aminotransferase 23 U/L (7-40); Albumin 4.1 g/dL (3.2-4.8); Alkaline Phosphatase 55 U/L (46-116); Anion Gap 6 (5-15); Aspartate Aminotransferase 19 U/L (13-40); BUN/Creatinine Ratio 19.5 (10.0-20.0); Blood Urea Nitrogen 25 mg/dL (9-23); Calcium 9.7 mg/dL (8.5-10.1); Carbon Dioxide 24 mmol/L (20-30); Chloride 101 mmol/L (98-107); Glucose 156 mg/dL (74-106); Potassium 4.9 mmol/L (3.5-5.1); Sodium 131 mmol/L (136-145)
[2023-09-19 22:08] LABS: Bilirubin, Total 0.3 mg/dL (0.2-1.0); Total Protein 6.8 g/dL (5.7-8.2)
[2023-09-19] MEDS ORDERED: HEPARIN SODIUM (PORCINE) 5000 UNITS/ML 1ML VIAL IV ONE (23:30)
[2023-09-19] MEDS ORDERED: MORPHINE SULFATE INJ 2 MG/ml SYRG IV PRN (23:30)
[2023-09-19] MEDS ORDERED: NITROGLYCERIN 0.4 MG SL TAB SL PRN (23:30)
[2023-09-19] MEDS ORDERED: ACETAMINOPHEN 325 MG TAB PO PRN (23:30)
[2023-09-19] MEDS ORDERED: DEXTROSE (50%) 50ML SYRG IV PRN (23:30)
[2023-09-19] MEDS ORDERED: ONDANSETRON HCL 4 MG/2 ML VIAL IV PRN (23:30)
[2023-09-19] MEDS ORDERED: HEPARIN DRIP/D5W 100UNITS/ML 250 ML IV SCH (23:30)
[2023-09-20] VITALS (14 sets, daily range): BP systolic 132–144; BP diastolic 49–54; PULSE 67–94; RESP 16–18; TEMP 98.1–98.3; O2SAT 94–100
[2023-09-20 00:24] LABS: INR 0.98 (0.9-1.15); Prothrombin Time 10.3 sec (9.3-11.8)
[2023-09-20] MEDS: ATORVASTATIN 20 MG TAB PO SCH (00:59)
[2023-09-20] MEDS: SODIUM CHLORIDE 0.9% 1,000 ML IV SCH (01:02)
[2023-09-20] MEDS: IPRATROPIUM BROM 0.5 MG/2.5ML INH SOL NEB SCH (01:36)
[2023-09-20 04:51] LABS: Urine Bacteria FEW /hpf (None Seen); Urine Blood Negative /uL (Negative); Urine Clarity Clear (Clear); Urine Color Colorless (Yellow); Urine Protein, UAD TRACE (Negative); Urine Specific Gravity 1.012 (1.001-1.035); Urine Urobilinogen Normal (Negative); Urine WBC 2 /hpf (0 - 5)
[2023-09-20 05:31] LABS: Chloride 104 mmol/L (98-107); Potassium 4.8 mmol/L (3.5-5.1); Sodium 134 mmol/L (136-145)
[2023-09-20 05:32] LABS: Anion Gap 3 (5-15); Calcium 9.3 mg/dL (8.5-10.1); Carbon Dioxide 27 mmol/L (20-30)
[2023-09-20 05:37] LABS: BUN/Creatinine Ratio 26.7 (10.0-20.0); Blood Urea Nitrogen 32 mg/dL (9-23); Glucose 81 mg/dL (74-106)
[2023-09-20] MEDS: HEPARIN DRIP/D5W 100UNITS/ML 250 ML IV SCH (06:35)
[2023-09-20] MEDS: ACCU-CHEK COMFORT CURVE STRIP VI SCH (06:59)
[2023-09-20] MEDS: InsuLIN REG 1unit/0.01ml Soln (100units/ml) SC SCH (07:00)
[2023-09-20] MEDS: PANTOPRAZOLE 40 MG/10 ML VIAL INJ IV SCH (09:55)
[2023-09-20] MEDS: ASPirin 81 mg TAB PO SCH (09:55)
[2023-09-20] MEDS: HYDROcodone-ACET 5/325MG TAB PO PRN (09:56)
[2023-09-20] MEDS ORDERED: NIFE1TAB30 PO (11:04)
[2023-09-20] MEDS ORDERED: BUDE3CAP18 PO (11:04)
[2023-09-20] MEDS ORDERED: INSU1INJ19 SC (11:04)
[2023-09-20] MEDS ORDERED: LISI20TA56 PO (11:04)
[2023-09-20] MEDS ORDERED: PANT40T PO (11:04)
[2023-09-20] MEDS ORDERED: CLOP75TA70 PO (11:04)
[2023-09-20] MEDS: hydrALAZINE HCL 20 MG/ML VL IV PRN (11:46)
[2023-09-20 12:30] LABS: INR 1.03 (0.9-1.15); Partial Thromboplastin Time 63.4 SEC (24.5-34.5); Prothrombin Time 10.8 sec (9.3-11.8)
[2023-09-20] MEDS ORDERED: DICL5GEL TOP (17:22)
[2023-09-20] MEDS ORDERED: LATA0.0020 EACHEYE (17:22)
[2023-09-20] MEDS ORDERED: LEVOTAB51 PO (17:22)
[2023-09-20] MEDS ORDERED: INS7030I SC (17:22)
[2023-09-20] MEDS ORDERED: BENZ100C97 PO (17:22)
[2023-09-21] VITALS (25 sets, daily range): BP systolic 86–172; BP diastolic 16–87; PULSE 73–105; RESP 12–29; TEMP 97.8–98.7; O2SAT 0–100
[2023-09-21 02:07] LABS: INR 1.05 (0.9-1.15); Partial Thromboplastin Time 67.1 SEC (24.5-34.5)
[2023-09-21 05:00] LABS: Basophils # (auto) 0.1 10 ^3/uL (0-0.2); Basophils % (auto) 0.9 % (0.0-2.0); Eosinophils # (auto) 0.2 10 ^3/uL (0-0.8); Eosinophils % (auto) 3.3 % (0.0-7.0); Hematocrit 28.1 % (36.0-46.0); Lymphocytes # (auto) 2.1 10 ^3/uL (0.4-5.4); Lymphocytes % (auto) 34.8 % (10.0-50.0); Mean Corpuscular Hgb Conc. 32.2 g/dL (32.0-36.0); Monocytes # (auto) 0.7 10 ^3/uL (0-1.3); Monocytes % (auto) 11.6 % (0.0-12.0); Neutrophils % (auto) 49.4 % (37.0-80.0); Nucleated Red Blood Cells % 0.2 %; Red Blood Cells 3.12 10^6/uL (4.0-5.20); Red Cell Distribution Width 16.9 % (11.8-14.3); White Blood Cell 6.1 10^3/uL (4.4-10.8)
[2023-09-21 05:07] LABS: Chloride 106 mmol/L (98-107); Potassium 4.5 mmol/L (3.5-5.1); Sodium 137 mmol/L (136-145)
[2023-09-21 05:08] LABS: Anion Gap 3 (5-15); Carbon Dioxide 28 mmol/L (20-30)
[2023-09-21 05:09] LABS: Calcium 9.4 mg/dL (8.5-10.1)
[2023-09-21 05:13] LABS: Glucose 190 mg/dL (74-106); Triglycerides 138 mg/dL (< 150)
[2023-09-21 05:14] LABS: BUN/Creatinine Ratio 23.8 (10.0-20.0); Blood Urea Nitrogen 25 mg/dL (9-23); LDL Cholesterol 90 mg/dL (< 100)
[2023-09-21 05:15] LABS: Cholesterol 165 mg/dL (< 200); HDL Cholesterol 49 mg/dL (40-59)
[2023-09-21 08:02] LABS: INR 1.04 (0.9-1.15); Prothrombin Time 10.9 sec (9.3-11.8)
[2023-09-21] MEDS ORDERED: IPRATROPIUM BROM 0.5 MG/2.5ML INH SOL NEB PRN (16:00)
[2023-09-21] MEDS: AMIODARONE 450mg/250ml AE 250 ML IV SCH (18:45)
[2023-09-21] MEDS: AMIODARONE BOLUS KIT 100 ML IV ONE (18:50)
[2023-09-21] MEDS: INSULIN 70/30 1unit/0.01ml Susp (100units/ml) SC SCH (22:00)
[2023-09-22] VITALS (20 sets, daily range): BP systolic 94–177; BP diastolic 30–95; PULSE 71–84; RESP 13–26; TEMP 98.2–99; O2SAT 0–100
[2023-09-22] MEDS ORDERED: AMIODARONE 450mg/250ml AE 250 ML IV SCH (00:45)
[2023-09-22 05:24] LABS: Chloride 99 mmol/L (98-107)
[2023-09-22 05:25] LABS: Anion Gap 7 (5-15); Carbon Dioxide 23 mmol/L (20-30)
[2023-09-22 05:30] LABS: BUN/Creatinine Ratio 24.3 (10.0-20.0); Blood Urea Nitrogen 25 mg/dL (9-23); Glucose 232 mg/dL (74-106)
[2023-09-22 05:36] LABS: INR 1.04 (0.9-1.15); Partial Thromboplastin Time 56.8 SEC (24.5-34.5); Prothrombin Time 10.9 sec (9.3-11.8)
[2023-09-22 05:49] LABS: Basophils # (auto) 0.1 10 ^3/uL (0-0.2); Basophils % (auto) 0.9 % (0.0-2.0); Eosinophils # (auto) 0.3 10 ^3/uL (0-0.8); Eosinophils % (auto) 3.7 % (0.0-7.0); Hematocrit 30.5 % (36.0-46.0); Lymphocytes # (auto) 2.2 10 ^3/uL (0.4-5.4); Lymphocytes % (auto) 31.8 % (10.0-50.0); Mean Corpuscular Hemoglobin 29.6 pg (28.0-32.0); Mean Corpuscular Hgb Conc. 32.7 g/dL (32.0-36.0); Mean Corpuscular Volume 90.8 fL (80.0-100.0); Monocytes % (auto) 13.6 % (0.0-12.0); Neutrophils # (auto) 3.5 10 ^3/uL (1.6-8.6); Red Blood Cells 3.36 10^6/uL (4.0-5.20); Red Cell Distribution Width 16.4 % (11.8-14.3)
[2023-09-22 05:52] LABS: Sodium 129 mmol/L (136-145)
[2023-09-22] MEDS ORDERED: INSULIN 70/30 1unit/0.01ml Susp (100units/ml) SC SCH (06:00)
[2023-09-22] MEDS: INSULIN 70/30 1unit/0.01ml Susp (100units/ml) SC SCH (08:00)
[2023-09-22] MEDS: OLANZapine 5 MG TAB PO SCH (21:45)
[2023-09-22] MEDS: AMIODARONE HCL 200 MG TAB PO SCH (21:47)
[2023-09-23] VITALS (20 sets, daily range): BP systolic 95–152; BP diastolic 31–65; PULSE 70–88; RESP 10–27; TEMP 98–98.6; O2SAT 90–99
[2023-09-23 05:48] LABS: Basophils # (auto) 0.1 10 ^3/uL (0-0.2); Basophils % (auto) 0.8 % (0.0-2.0); Eosinophils # (auto) 0.3 10 ^3/uL (0-0.8); Eosinophils % (auto) 3.5 % (0.0-7.0); Hematocrit 27.9 % (36.0-46.0); Hemoglobin 9.4 g/dL (12.2-16.2); Lymphocytes # (auto) 2.9 10 ^3/uL (0.4-5.4); Lymphocytes % (auto) 40.2 % (10.0-50.0); Mean Corpuscular Hgb Conc. 33.6 g/dL (32.0-36.0); Mean Corpuscular Volume 89.1 fL (80.0-100.0); Monocytes # (auto) 0.8 10 ^3/uL (0-1.3); Monocytes % (auto) 10.7 % (0.0-12.0); Neutrophils # (auto) 3.2 10 ^3/uL (1.6-8.6); Neutrophils % (auto) 44.8 % (37.0-80.0); Nucleated Red Blood Cells % 0.1 %; Red Blood Cells 3.12 10^6/uL (4.0-5.20); Red Cell Distribution Width 16.4 % (11.8-14.3); White Blood Cell 7.2 10^3/uL (4.4-10.8)
[2023-09-23 06:00] LABS: INR 0.99 (0.9-1.15); Partial Thromboplastin Time 58.1 SEC (24.5-34.5); Prothrombin Time 10.4 sec (9.3-11.8)
[2023-09-23 07:22] LABS: Chloride 100 mmol/L (98-107); Potassium 4.8 mmol/L (3.5-5.1); Sodium 128 mmol/L (136-145)
[2023-09-23 07:23] LABS: Anion Gap 2 (5-15); Carbon Dioxide 26 mmol/L (20-30)
[2023-09-23 07:24] LABS: Calcium 9.5 mg/dL (8.5-10.1)
[2023-09-23 07:29] LABS: BUN/Creatinine Ratio 18.8 (10.0-20.0); Blood Urea Nitrogen 18 mg/dL (9-23); Glucose 232 mg/dL (74-106)
[2023-09-23] MEDS: APIXABAN 5 MG TAB PO SCH (21:02)
[2023-09-24] VITALS (9 sets, daily range): BP systolic 106–155; BP diastolic 38–48; PULSE 52–84; RESP 16–18; TEMP 98–98.3; O2SAT 0–98
[2023-09-24 05:52] LABS: INR 0.97 (0.9-1.15); Partial Thromboplastin Time 30.5 SEC (24.5-34.5); Prothrombin Time 10.2 sec (9.3-11.8)
[2023-09-24] MEDS: INSULIN 70/30 1unit/0.01ml Susp (100units/ml) SC SCH (16:56)
[2023-09-25] VITALS (8 sets, daily range): BP systolic 135–146; BP diastolic 52–54; PULSE 76–82; RESP 16–20; TEMP 97.2–98.5; O2SAT 94–98
[2023-09-25] MEDS ORDERED: METO25TA93 PO (15:27)
[2023-09-25] MEDS ORDERED: AMIO200T33 PO (15:27)
== END 2023-09-25 17:39 | disposition home health service (06) | DRG 281 ==
LOC: ER 21:09 → EDBD 21:09 → TELE 23:28 → DOU IN ICU 09-20 23:00 → EAST 09-23 13:24 → TELE-EAST 09-23 14:19
PROVIDERS: ADMIT Nurse Practitioner Family; ATTEND Internal Medicine
PROC: 05HB33Z Insertion of Infusion Device into Right Basilic Vein, Percutaneous Approach (ICD-10-PCS; principal; 2023-09-21)
PROC: B54MZZA Ultrasonography of Right Upper Extremity Veins, Guidance (ICD-10-PCS; 2023-09-21)
DX: I21.4 Non-ST elevation (NSTEMI) myocardial infarction (principal); I48.20 Chronic atrial fibrillation, unspecified; J44.1 Chronic obstructive pulmonary disease with (acute) exacerbation; N17.9 Acute kidney failure, unspecified; I11.0 Hypertensive heart disease with heart failure; I50.9 Heart failure, unspecified; E78.5 Hyperlipidemia, unspecified; E11.65 Type 2 diabetes mellitus with hyperglycemia; I25.10 Atherosclerotic heart disease of native coronary artery without angina pectoris; E11.51 Type 2 diabetes mellitus with diabetic peripheral angiopathy without gangrene; I70.203 Unspecified atherosclerosis of native arteries of extremities, bilateral legs; Z88.0 Allergy status to penicillin; Z95.5 Presence of coronary angioplasty implant and graft; Z89.519 Acquired absence of unspecified leg below knee; Z79.02 Long term (current) use of antithrombotics/antiplatelets; Z79.4 Long term (current) use of insulin; Z79.899 Other long term (current) drug therapy; Z86.73 Personal history of transient ischemic attack (TIA), and cerebral infarction without residual deficits; Z83.3 Family history of diabetes mellitus; Z80.3 Family history of malignant neoplasm of breast; Z82.49 Family history of ischemic heart disease and other diseases of the circulatory system
CPT/HCPCS: 36415; 71045; 80048; 80053; 80061; 81001; 82962; 83036; 83735; 83880; 84484; 85025; 85610; 85730; 87081; 93005; 94640; 97110; 97116; 97163; C9113; G0378; J1815

== ENCOUNTER 2023-10-25 21:51 | Inpatient (IN) | payer OTHER, MEDICAID ==
[~2023-10-25] VITALS: Ht 167.6 cm; Wt 102.0 kg
[~2023-10-25 21:51] MED LIST changes: +AMIO200T33 PO; +AZIT-43 PO; -CALC-239 PO; -CEPH500C PO; +CLOP75TA70 PO; +DICL5GEL TOP; +DIVA-91 PO; -DIVA500T3 PO; -FURO1TAB31 PO; -GABA-1251 PO; +INS7030I SC; -INSDRIP SC; -INSU100I4 SC; +LATA0.0020 EACHEYE; +LEVOTAB51 PO; +LISI20TA56 PO; -LOSA25TA5 PO; -MAGN400T40 PO; -METO-289 PO; -MISCCAP66 PO; +NIFE1TAB30 PO; +PANT40T PO; -POTA-180 PO; +SENN-213 PO; -SENN1TAB91 PO; -SILV-51 TOP; -TICA90TA PO; -[UNRECOGNIZED DRUG - CODE] PO
[2023-10-25 23:01] LABS: Basophils # (auto) 0 10 ^3/uL (0-0.2); Basophils % (auto) 0.3 % (0.0-2.0); Eosinophils # (auto) 0.2 10 ^3/uL (0-0.8); Eosinophils % (auto) 2.5 % (0.0-7.0); Hematocrit 29.2 % (36.0-46.0); Hemoglobin 9.4 g/dL (12.2-16.2); Mean Corpuscular Hemoglobin 29.4 pg (28.0-32.0); Mean Corpuscular Hgb Conc. 32.3 g/dL (32.0-36.0); Mean Corpuscular Volume 91.1 fL (80.0-100.0); Monocytes # (auto) 0.7 10 ^3/uL (0-1.3); Monocytes % (auto) 9.9 % (0.0-12.0); Neutrophils % (auto) 43.3 % (37.0-80.0); Nucleated Red Blood Cells % 0.1 %; Red Cell Distribution Width 16.4 % (11.8-14.3); White Blood Cell 6.9 10^3/uL (4.4-10.8)
[2023-10-25 23:19] LABS: Alanine Aminotransferase 27 U/L (7-40); Albumin 3.4 g/dL (3.2-4.8); Alkaline Phosphatase 47 U/L (46-116); Anion Gap 8 (5-15); Aspartate Aminotransferase 11 U/L (13-40); BUN/Creatinine Ratio 31.1 (10.0-20.0); Bilirubin, Total 0.2 mg/dL (0.2-1.0); Blood Urea Nitrogen 33 mg/dL (9-23); Calcium 8.9 mg/dL (8.7-10.4); Carbon Dioxide 23 mmol/L (20-30); Chloride 97 mmol/L (98-107); Glucose 113 mg/dL (74-106); Potassium 3.7 mmol/L (3.5-5.1); Sodium 128 mmol/L (136-145); Total Protein 5.8 g/dL (5.7-8.2)
[2023-10-25 23:22] LABS: Base Excess -2.9 mmol/L (-2.0-2.0)
[2023-10-26] VITALS (12 sets, daily range): BP systolic 150–183; BP diastolic 50–66; PULSE 69–97; RESP 14–22; TEMP 97.2–98.4; O2SAT 95–100
[2023-10-26] MEDS: DexAMETHasone SOD PHOS 10MG/1ML VIAL INJ IV ONE (00:27)
[2023-10-26] MEDS ORDERED: NITROGLYCERIN 0.4 MG SL TAB SL PRN (00:30)
[2023-10-26] MEDS ORDERED: ACETAMINOPHEN 325 MG TAB PO PRN (00:30)
[2023-10-26] MEDS ORDERED: IPRATROPIUM BROM 0.5 MG/2.5ML INH SOL NEB PRN (00:30)
[2023-10-26] MEDS ORDERED: DOCUSATE SOD 100 MG CAP PO PRN (00:30)
[2023-10-26] MEDS ORDERED: DEXTROSE (50%) 50ML SYRG IV PRN (00:30)
[2023-10-26] MEDS ORDERED: MORPHINE SULFATE INJ 2 MG/ml SYRG IV PRN (00:30)
[2023-10-26] MEDS ORDERED: ALBUTEROL SULF 2.5 MG/0.5ML(0.5%) NEB SOLN NEB PRN (00:30)
[2023-10-26] MEDS ORDERED: ONDANSETRON HCL 4 MG/2 ML VIAL IV PRN (00:30)
[2023-10-26] MEDS ORDERED: HYDROcodone-ACET 5/325MG TAB PO PRN (00:30)
[2023-10-26 02:30] LABS: Urine Bacteria FEW /hpf (None Seen); Urine Blood Negative /uL (Negative); Urine Clarity Clear (Clear); Urine Color Light-Yellow (Yellow); Urine Protein, UAD Negative (Negative); Urine Specific Gravity 1.013 (1.001-1.035); Urine Urobilinogen Normal (Negative); Urine WBC 1 /hpf (0 - 5)
[2023-10-26] MEDS: levoFLOXacin 750MG 150 ML IV ONE (03:07)
[2023-10-26 04:57] LABS: Basophils # (auto) 0 10 ^3/uL (0-0.2); Basophils % (auto) 0.2 % (0.0-2.0); Eosinophils # (auto) 0 10 ^3/uL (0-0.8); Eosinophils % (auto) 0.4 % (0.0-7.0); Hematocrit 28.1 % (36.0-46.0); Hemoglobin 9.1 g/dL (12.2-16.2); Lymphocytes # (auto) 0.7 10 ^3/uL (0.4-5.4); Lymphocytes % (auto) 7.6 % (10.0-50.0); Mean Corpuscular Hgb Conc. 32.5 g/dL (32.0-36.0); Mean Corpuscular Volume 92.6 fL (80.0-100.0); Monocytes # (auto) 0.2 10 ^3/uL (0-1.3); Monocytes % (auto) 1.9 % (0.0-12.0); Neutrophils # (auto) 8.8 10 ^3/uL (1.6-8.6); Neutrophils % (auto) 89.9 % (37.0-80.0); Red Blood Cells 3.03 10^6/uL (4.0-5.20); Red Cell Distribution Width 16.6 % (11.8-14.3); White Blood Cell 9.8 10^3/uL (4.4-10.8)
[2023-10-26 05:09] LABS: Alanine Aminotransferase 27 U/L (7-40); Albumin 3.5 g/dL (3.2-4.8); Alkaline Phosphatase 52 U/L (46-116); Anion Gap 10 (5-15); Aspartate Aminotransferase 15 U/L (13-40); BUN/Creatinine Ratio 25.9 (10.0-20.0); Blood Urea Nitrogen 29 mg/dL (9-23); Carbon Dioxide 20 mmol/L (20-30); Chloride 97 mmol/L (98-107); Glucose 312 mg/dL (74-106); Potassium 4.6 mmol/L (3.5-5.1); Sodium 127 mmol/L (136-145)
[2023-10-26 05:10] LABS: Bilirubin, Total 0.2 mg/dL (0.2-1.0)
[2023-10-26] MEDS: SODIUM CHLOR 0.9% PF (SALINE LOCK) 10ML VIAL/SYR IV SCH (06:16)
[2023-10-26] MEDS: ACCU-CHEK COMFORT CURVE STRIP VI SCH (06:16)
[2023-10-26] MEDS: methylPREDNISolone SOD SUCC 40 MG/ML VL IV SCH ×2 (06:26→10:25)
[2023-10-26] MEDS: InsuLIN REG 1unit/0.01ml Soln (100units/ml) SC SCH ×2 (06:38→22:20)
[2023-10-26] MEDS ORDERED: ASPirin 81 mg TAB PO SCH (10:00)
[2023-10-26] MEDS ORDERED: CARVEDILOL 12.5 MG TAB PO SCH (10:00)
[2023-10-26] MEDS: FAMOTIDINE (10MG/ML) 2ML VL IV SCH (10:25)
[2023-10-26] MEDS: NIFEdipine ER 30 MG TAB PO SCH (10:25)
[2023-10-26] MEDS: METOPROLOL SUCCINATE XL 50 MG TAB PO SCH (10:26)
[2023-10-26] MEDS: CLOPIDOGREL BISULFATE 75 MG TAB PO SCH (10:26)
[2023-10-26] MEDS: LISINOPRIL 20 MG TAB PO SCH (10:26)
[2023-10-26] MEDS: APIXABAN 5 MG TAB PO SCH (10:26)
[2023-10-26] MEDS: AZITHROMYCIN 250 MG TAB PO ONE (10:28)
[2023-10-26] MEDS: AMIODARONE HCL 200 MG TAB PO SCH (10:43)
[2023-10-26] MEDS: hydrALAZINE HCL 20 MG/ML VL IV PRN (12:25)
[2023-10-26] MEDS ORDERED: INSULIN LANTUS (GLARGINE) 1 /0.01ml (100units/ml) SC SCH (22:00)
[2023-10-26] MEDS: ATORVASTATIN 20 MG TAB PO SCH (22:06)
[2023-10-26] MEDS: DOXYCYCLINE 100 MG TAB/CAP PO ONE (22:39)
[2023-10-26] MEDS: INSULIN LANTUS (GLARGINE) 1 /0.01ml (100units/ml) SC SCH (22:43)
[2023-10-27] VITALS (17 sets, daily range): BP systolic 129–146; BP diastolic 39–102; PULSE 62–78; RESP 16–21; TEMP 97.7–98.9; O2SAT 93–99
[2023-10-27 05:07] LABS: Basophils # (auto) 0 10 ^3/uL (0-0.2); Basophils % (auto) 0.1 % (0.0-2.0); Eosinophils # (auto) 0 10 ^3/uL (0-0.8); Hematocrit 25.6 % (36.0-46.0); Hemoglobin 8.6 g/dL (12.2-16.2); Lymphocytes % (auto) 15.8 % (10.0-50.0); Mean Corpuscular Hemoglobin 30.1 pg (28.0-32.0); Mean Corpuscular Hgb Conc. 33.5 g/dL (32.0-36.0); Mean Corpuscular Volume 89.8 fL (80.0-100.0); Monocytes # (auto) 0.4 10 ^3/uL (0-1.3); Monocytes % (auto) 5.6 % (0.0-12.0); Neutrophils # (auto) 5.1 10 ^3/uL (1.6-8.6); Neutrophils % (auto) 78.5 % (37.0-80.0); Red Blood Cells 2.85 10^6/uL (4.0-5.20); Red Cell Distribution Width 16.2 % (11.8-14.3); White Blood Cell 6.5 10^3/uL (4.4-10.8)
[2023-10-27 05:14] LABS: Alanine Aminotransferase 24 U/L (7-40); Albumin 3.7 g/dL (3.2-4.8); Alkaline Phosphatase 44 U/L (46-116); Anion Gap 3 (5-15); Aspartate Aminotransferase < 8 U/L (13-40); Bilirubin, Total 0.2 mg/dL (0.2-1.0); Blood Urea Nitrogen 31 mg/dL (9-23); Calcium 9.6 mg/dL (8.7-10.4); Carbon Dioxide 26 mmol/L (20-30); Chloride 100 mmol/L (98-107); Glucose 218 mg/dL (74-106); Potassium 4.7 mmol/L (3.5-5.1); Sodium 129 mmol/L (136-145); Total Protein 6.3 g/dL (5.7-8.2)
[2023-10-27] MEDS: PANTOPRAZOLE 40 MG TAB PO SCH (09:37)
[2023-10-27] MEDS: EMPAGLIFLOZIN 10 MG TAB PO SCH (09:37)
[2023-10-27] MEDS: DOXYCYCLINE 100 MG TAB/CAP PO SCH (09:37)
[2023-10-27] MEDS ORDERED: AZITHROMYCIN 250 MG TAB PO SCH (10:00)
[2023-10-27] MEDS ORDERED: ALBUTEROL SULF 2.5 MG/0.5ML(0.5%) NEB SOLN NEB PRN (12:00)
[2023-10-27] MEDS: ALBUTEROL SULF 2.5 MG/0.5ML(0.5%) NEB SOLN NEB SCH (13:24)
[2023-10-27] MEDS: IPRATROPIUM BROM 0.5 MG/2.5ML INH SOL NEB SCH (13:25)
[2023-10-27] MEDS ORDERED: INSULIN LANTUS (GLARGINE) 1 /0.01ml (100units/ml) SC SCH (18:00)
[2023-10-28] VITALS (15 sets, daily range): BP systolic 125–157; BP diastolic 34–50; PULSE 64–74; RESP 16–20; TEMP 98.1–98.5; O2SAT 90–100
[2023-10-28 06:51] LABS: Basophils # (auto) 0 10 ^3/uL (0-0.2); Basophils % (auto) 0.1 % (0.0-2.0); Eosinophils # (auto) 0 10 ^3/uL (0-0.8); Eosinophils % (auto) 0.1 % (0.0-7.0); Hematocrit 26.8 % (36.0-46.0); Hemoglobin 8.7 g/dL (12.2-16.2); Lymphocytes # (auto) 1.2 10 ^3/uL (0.4-5.4); Lymphocytes % (auto) 17.1 % (10.0-50.0); Mean Corpuscular Hemoglobin 29.9 pg (28.0-32.0); Mean Corpuscular Hgb Conc. 32.5 g/dL (32.0-36.0); Mean Corpuscular Volume 92.1 fL (80.0-100.0); Monocytes # (auto) 0.4 10 ^3/uL (0-1.3); Monocytes % (auto) 6.1 % (0.0-12.0); Neutrophils # (auto) 5.4 10 ^3/uL (1.6-8.6); Neutrophils % (auto) 76.6 % (37.0-80.0); Nucleated Red Blood Cells % 0.2 %; Red Blood Cells 2.91 10^6/uL (4.0-5.20); Red Cell Distribution Width 16.6 % (11.8-14.3); White Blood Cell 7.1 10^3/uL (4.4-10.8)
[2023-10-29] VITALS (11 sets, daily range): BP systolic 126–160; BP diastolic 41–59; PULSE 59–71; RESP 16–21; TEMP 36.7; O2SAT 93–100
[2023-10-29] MEDS ORDERED: FLUT1AER3 IN (10:52)
[2023-10-29] MEDS ORDERED: EMPA1TAB PO (10:52)
[2023-10-29] MEDS ORDERED: PRED20TA2 PO (10:52)
== END 2023-10-29 19:25 | disposition home or self-care (01) | DRG 189 ==
LOC: ER 21:51 → EDBD 21:51 → TELE 10-26 00:40 → TELE-CENTR 10-26 00:40
PROVIDERS: ADMIT Nurse Practitioner Family; ATTEND Internal Medicine Pulmonary Disease
DX: J96.01 Acute respiratory failure with hypoxia (principal); J15.69 Pneumonia due to other Gram-negative bacteria; I50.31 Acute diastolic (congestive) heart failure; J15.9 Unspecified bacterial pneumonia; J44.1 Chronic obstructive pulmonary disease with (acute) exacerbation; E87.1 Hypo-osmolality and hyponatremia; E87.0 Hyperosmolality and hypernatremia; J44.0 Chronic obstructive pulmonary disease with (acute) lower respiratory infection; I11.0 Hypertensive heart disease with heart failure; I48.0 Paroxysmal atrial fibrillation; E86.0 Dehydration; E66.01 Morbid (severe) obesity due to excess calories; I25.10 Atherosclerotic heart disease of native coronary artery without angina pectoris; D63.8 Anemia in other chronic diseases classified elsewhere; E78.5 Hyperlipidemia, unspecified; Z88.0 Allergy status to penicillin; Z86.73 Personal history of transient ischemic attack (TIA), and cerebral infarction without residual deficits; Z95.5 Presence of coronary angioplasty implant and graft; Z89.512 Acquired absence of left leg below knee; Z68.36 Body mass index [BMI] 36.0-36.9, adult; Z83.3 Family history of diabetes mellitus; Z79.01 Long term (current) use of anticoagulants; Z79.899 Other long term (current) drug therapy; Z79.02 Long term (current) use of antithrombotics/antiplatelets; Z80.3 Family history of malignant neoplasm of breast; Z82.49 Family history of ischemic heart disease and other diseases of the circulatory system
CPT/HCPCS: 36415; 36600; 71045; 80053; 81001; 82805; 82962; 83036; 83880; 84484; 85025; 86850; 86900; 86901; 87081; 93005; 94640; G0378; J1100; J1815; J1956; J3490

== ENCOUNTER 2023-11-29 07:47 | Inpatient (IN) | payer OTHER, MEDICAID ==
[~2023-11-29] VITALS: Ht 167.6 cm; Wt 101.9 kg
[2023-11-29] VITALS (8 sets, daily range): BP systolic 162; BP diastolic 51; PULSE 68–80; RESP 18–28; TEMP 97.9; O2SAT 96–100
[~2023-11-29 07:47] MED LIST changes: -AZIT-43 PO; +EMPA1TAB PO; +FLUT1AER3 IN; +PRED20TA2 PO
[2023-11-29] MEDS: FUROSEMIDE 40 MG/4 ML VIAL IV ONE (08:45)
[2023-11-29 08:54] LABS: Basophils # (auto) 0 10 ^3/uL (0-0.2); Basophils % (auto) 0.5 % (0.0-2.0); Eosinophils # (auto) 0.1 10 ^3/uL (0-0.8); Eosinophils % (auto) 1.4 % (0.0-7.0); Hematocrit 30.7 % (36.0-46.0); Hemoglobin 9.9 g/dL (12.2-16.2); Lymphocytes # (auto) 2.6 10 ^3/uL (0.4-5.4); Lymphocytes % (auto) 46.7 % (10.0-50.0); Mean Corpuscular Hemoglobin 30.3 pg (28.0-32.0); Mean Corpuscular Hgb Conc. 32.3 g/dL (32.0-36.0); Mean Corpuscular Volume 93.8 fL (80.0-100.0); Monocytes # (auto) 0.4 10 ^3/uL (0-1.3); Monocytes % (auto) 7.6 % (0.0-12.0); Neutrophils # (auto) 2.4 10 ^3/uL (1.6-8.6); Neutrophils % (auto) 43.8 % (37.0-80.0); Red Blood Cells 3.28 10^6/uL (4.0-5.20); White Blood Cell 5.6 10^3/uL (4.4-10.8)
[2023-11-29 08:58] LABS: Base Excess -3.5 mmol/L (-2.0-2.0)
[2023-11-29 09:08] LABS: INR 1.04 (0.9-1.15)
[2023-11-29 09:16] LABS: Alanine Aminotransferase 22 U/L (7-40); Albumin 4.1 g/dL (3.2-4.8); Alkaline Phosphatase 49 U/L (46-116); Anion Gap 6 (5-15); Aspartate Aminotransferase 10 U/L (13-40); BUN/Creatinine Ratio 23.9 (10.0-20.0); Bilirubin, Total 0.2 mg/dL (0.2-1.0); Blood Urea Nitrogen 27 mg/dL (9-23); Calcium 9.8 mg/dL (8.5-10.1); Carbon Dioxide 27 mmol/L (20-30); Chloride 109 mmol/L (98-107); Glucose 146 mg/dL (74-106); Potassium 4.1 mmol/L (3.5-5.1); Sodium 142 mmol/L (136-145); Total Protein 6.7 g/dL (5.7-8.2)
[2023-11-29] MEDS: levoFLOXacin 750MG 150 ML IV ONE (10:45)
[2023-11-29] MEDS ORDERED: NITROGLYCERIN 0.4 MG SL TAB SL PRN (11:45)
[2023-11-29] MEDS ORDERED: DEXTROSE (50%) 50ML SYRG IV PRN ×2 (11:45→22:30)
[2023-11-29] MEDS ORDERED: MORPHINE SULFATE INJ 2 MG/ml SYRG IV PRN (11:45)
[2023-11-29] MEDS ORDERED: ALBUTEROL SULF 2.5 MG/0.5ML(0.5%) NEB SOLN NEB PRN (11:45)
[2023-11-29] MEDS ORDERED: ACETAMINOPHEN 325 MG TAB PO PRN (11:45)
[2023-11-29 12:05] LABS: Triglycerides 126 mg/dL (< 150)
[2023-11-29 12:06] LABS: LDL Cholesterol 126 mg/dL (< 100)
[2023-11-29 12:07] LABS: Cholesterol 233 mg/dL (< 200); HDL Cholesterol 70 mg/dL (40-59)
[2023-11-29] MEDS: methylPREDNISolone SOD SUCC 125 MG/2 ML VL IV ONE (12:14)
[2023-11-29] MEDS: IPRATROPIUM BROM 0.5 MG/2.5ML INH SOL NEB SCH (14:14)
[2023-11-29] MEDS: ALBUTEROL SULF 2.5 MG/0.5ML(0.5%) NEB SOLN NEB SCH (14:14)
[2023-11-29] MEDS: ACCU-CHEK COMFORT CURVE STRIP VI SCH (17:54)
[2023-11-29] MEDS: InsuLIN REG 1unit/0.01ml Soln (100units/ml) SC SCH (17:54)
[2023-11-29] MEDS: DIVALPROEX SODIUM 500 MG PO SCH (20:00)
[2023-11-29] MEDS: methylPREDNISolone SOD SUCC 40 MG/ML VL IV SCH (22:12)
[2023-11-29] MEDS: APIXABAN 5 MG TAB PO SCH (22:12)
[2023-11-29] MEDS: OLANZapine 5 MG TAB PO SCH (22:13)
[2023-11-29] MEDS: AMIODARONE HCL 200 MG TAB PO SCH (22:13)
[2023-11-29] MEDS: ATORVASTATIN 20 MG TAB PO SCH (22:14)
[2023-11-29] MEDS: HALOPERIDOL 5 MG TAB PO SCH (22:14)
[2023-11-30] VITALS (21 sets, daily range): BP systolic 135–149; BP diastolic 57–60; PULSE 64–88; RESP 16–20; TEMP 98–98.6; O2SAT 96–100
[2023-11-30] MEDS: ACCU-CHEK COMFORT CURVE STRIP VI SCH ×3 (00:28→19:08)
[2023-11-30] MEDS: InsuLIN REG 1unit/0.01ml Soln (100units/ml) SC SCH ×3 (00:28→19:08)
[2023-11-30] MEDS: hydrALAZINE HCL 20 MG/ML VL IV PRN (01:11)
[2023-11-30] MEDS ORDERED: DEXTROSE (50%) 50ML SYRG IV PRN ×2 (04:00→16:30)
[2023-11-30] MEDS: INSULIN LANTUS (GLARGINE) 1 /0.01ml (100units/ml) SC ONE (04:11)
[2023-11-30 05:46] LABS: Basophils # (auto) 0 10 ^3/uL (0-0.2); Basophils % (auto) 0.3 % (0.0-2.0); Eosinophils # (auto) 0 10 ^3/uL (0-0.8); Hematocrit 29.3 % (36.0-46.0); Hemoglobin 9.6 g/dL (12.2-16.2); Lymphocytes # (auto) 0.5 10 ^3/uL (0.4-5.4); Lymphocytes % (auto) 13.7 % (10.0-50.0); Mean Corpuscular Hemoglobin 30.3 pg (28.0-32.0); Mean Corpuscular Hgb Conc. 32.6 g/dL (32.0-36.0); Mean Corpuscular Volume 92.9 fL (80.0-100.0); Monocytes # (auto) 0.2 10 ^3/uL (0-1.3); Neutrophils # (auto) 3.2 10 ^3/uL (1.6-8.6); Nucleated Red Blood Cells % 0.1 %; Red Blood Cells 3.16 10^6/uL (4.0-5.20); Red Cell Distribution Width 17.6 % (11.8-14.3); White Blood Cell 3.9 10^3/uL (4.4-10.8)
[2023-11-30 06:09] LABS: Alanine Aminotransferase 18 U/L (7-40); Albumin 3.8 g/dL (3.2-4.8); Alkaline Phosphatase 51 U/L (46-116); Anion Gap 8 (5-15); Aspartate Aminotransferase < 8 U/L (13-40); BUN/Creatinine Ratio 23.6 (10.0-20.0); Blood Urea Nitrogen 30 mg/dL (9-23); Calcium 9.3 mg/dL (8.7-10.4); Carbon Dioxide 25 mmol/L (20-30); Chloride 101 mmol/L (98-107); Potassium 4.6 mmol/L (3.5-5.1)
[2023-11-30 06:10] LABS: Bilirubin, Total 0.3 mg/dL (0.2-1.0); Total Protein 6.5 g/dL (5.7-8.2)
[2023-11-30 06:33] LABS: Sodium 134 mmol/L (136-145)
[2023-11-30 06:37] LABS: Glucose 413 mg/dL (74-106)
[2023-11-30] MEDS: CYANOCOBALAMIN 500 MCG TAB PO SCH (09:30)
[2023-11-30] MEDS: FERROUS SULFATE 325mg EC TAB PO SCH (09:31)
[2023-11-30] MEDS: ASPirin-EC 81 mg tab PO SCH (09:31)
[2023-11-30] MEDS: CLOPIDOGREL BISULFATE 75 MG TAB PO SCH (09:32)
[2023-11-30] MEDS: NIFEdipine ER 30 MG TAB PO SCH (09:34)
[2023-11-30] MEDS: LISINOPRIL 20 MG TAB PO SCH (09:35)
[2023-11-30] MEDS: PANTOPRAZOLE 40 MG TAB PO SCH (09:37)
[2023-11-30] MEDS: METOPROLOL SUCCINATE XL 50 MG TAB PO SCH (09:38)
[2023-11-30] MEDS ORDERED: ENOXAPARIN SOD 40 MG/0.4 ML SYRINGE SC SCH (10:00)
[2023-11-30] MEDS: FUROSEMIDE 20 MG/2 ML VIAL IV ONE (15:10)
[2023-12-01] VITALS (13 sets, daily range): BP systolic 124–137; BP diastolic 50–65; PULSE 68–88; RESP 16–20; TEMP 98–98.6; O2SAT 70–100
[2023-12-01] MEDS: INSULIN LANTUS (GLARGINE) 1 /0.01ml (100units/ml) SC SCH (10:00)
[2023-12-01 12:12] LABS: Basophils # (auto) 0 10 ^3/uL (0-0.2); Basophils % (auto) 0.1 % (0.0-2.0); Eosinophils # (auto) 0 10 ^3/uL (0-0.8); Hematocrit 27.9 % (36.0-46.0); Hemoglobin 9.2 g/dL (12.2-16.2); Lymphocytes # (auto) 1.7 10 ^3/uL (0.4-5.4); Lymphocytes % (auto) 21.3 % (10.0-50.0); Mean Corpuscular Hemoglobin 30.9 pg (28.0-32.0); Mean Corpuscular Hgb Conc. 33.1 g/dL (32.0-36.0); Mean Corpuscular Volume 93.3 fL (80.0-100.0); Monocytes # (auto) 0.6 10 ^3/uL (0-1.3); Monocytes % (auto) 7.8 % (0.0-12.0); Neutrophils # (auto) 5.8 10 ^3/uL (1.6-8.6); Neutrophils % (auto) 70.8 % (37.0-80.0); Red Blood Cells 2.99 10^6/uL (4.0-5.20); Red Cell Distribution Width 17.9 % (11.8-14.3); White Blood Cell 8.2 10^3/uL (4.4-10.8)
[2023-12-01 12:20] LABS: Alanine Aminotransferase 22 U/L (7-40); Albumin 3.9 g/dL (3.2-4.8); Alkaline Phosphatase 47 U/L (46-116); Anion Gap 4 (5-15); Aspartate Aminotransferase 14 U/L (13-40); BUN/Creatinine Ratio 27.8 (10.0-20.0); Bilirubin, Total 0.2 mg/dL (0.2-1.0); Calcium 9.5 mg/dL (8.5-10.1); Carbon Dioxide 28 mmol/L (20-30); Chloride 100 mmol/L (98-107); Potassium 5.1 mmol/L (3.5-5.1); Sodium 132 mmol/L (136-145); Total Protein 6.3 g/dL (5.7-8.2)
[2023-12-01 12:22] LABS: Blood Urea Nitrogen 42 mg/dL (9-23)
[2023-12-01 12:25] LABS: Glucose 404 mg/dL (74-106)
[2023-12-01] MEDS ORDERED: ALBU108A5 IN (13:00)
[2023-12-01] MEDS ORDERED: FLUT1AER3 IN (13:00)
== END 2023-12-01 16:25 | disposition home or self-care (01) | DRG 291 ==
LOC: EDBD 07:47 → EDUNIT# 07:47 → ER 07:47 → TELE 11:40 → TELE-EAST 11-30 06:02
PROVIDERS: ADMIT Internal Medicine Geriatric Medicine; ATTEND Internal Medicine Geriatric Medicine
DX: I11.0 Hypertensive heart disease with heart failure (principal); E11.01 Type 2 diabetes mellitus with hyperosmolarity with coma; I50.33 Acute on chronic diastolic (congestive) heart failure; J18.9 Pneumonia, unspecified organism; J44.1 Chronic obstructive pulmonary disease with (acute) exacerbation; J44.0 Chronic obstructive pulmonary disease with (acute) lower respiratory infection; E66.01 Morbid (severe) obesity due to excess calories; I48.0 Paroxysmal atrial fibrillation; E78.5 Hyperlipidemia, unspecified; I25.10 Atherosclerotic heart disease of native coronary artery without angina pectoris; Z95.5 Presence of coronary angioplasty implant and graft; Z86.73 Personal history of transient ischemic attack (TIA), and cerebral infarction without residual deficits; Z89.512 Acquired absence of left leg below knee; Z88.0 Allergy status to penicillin; Z68.36 Body mass index [BMI] 36.0-36.9, adult; Z79.4 Long term (current) use of insulin; Z79.899 Other long term (current) drug therapy
CPT/HCPCS: 36415; 36600; 71045; 80053; 80061; 82805; 82962; 83036; 83880; 84443; 84484; 85025; 85379; 85610; 93005; 93306; 94640; 96365; 96375; 99291; G0378; J1815; J1956